=== PATIENT | female | born 1980 | race Two or more races ===

== ENCOUNTER 2017-03-22 23:54 | Emergency (ER) | payer OTHER ==
--- NOTE | 2017-03-23 01:03 | PDOC ---
"History of Present Illness - General Chief Complaint: Pain, Acute Stated Complaint: PAIN Time Seen by Provider: 03/23/17 00:55 History Source: Patient Exam Limitations: No Limitations - History of Present Illness Initial Comments: 03/23/17 00:58 37yo Female patient w/ PmHx: Endometriosis, DVT, Hysterectomy presents to ED c/ o LLE pain and swelling x 2 days. Patient states she is concerned she may have a DVT due to past history of this to her RUE. Patient currently takes no medication. She denies any other complaints at this time. Occurred: reports: last week. denies: just prior to arrival, this morning, this afternoon, this evening, yesterday, other Severity: Yes: moderate. No: mild, severe Lower Extremity Pain Location: left: foot, leg Method of Injury: No: unknown, assault, burn, direct blow, fell, incised, motor vehicle accident, sports injury, twisted, other Modifying Factors: improves with: pain medication. worse with: None, cold therapy, immobilization, rest, other Associated Symptoms: See HPI Lower Ext. Injury Location - Specific Injury Location Legs: left: soft tissue tenderness, pain, swelling Foot: left foot soft tissue tenderness, left foot pain, left foot swelling Extremity Pain Location - Extremity Pain Location Extremity Pain Locations: left: foot, leg Past History - Travel Traveled outside of the country in the last 30 days: No Close contact w/someone who was outside of country & ill: No - Past Medical History Allergies/Adverse Reactions: Allergies Allergy/AdvReac Type Severity Reaction Status Date / Time aspirin Allergy Verified 03/23/17 01:04 Home Medications: Ambulatory Orders NK [No Known Home Medication] 05/11/15 Anemia: No Asthma: No Cancer: No Cardiac Disorders: No CVA: No COPD: No CHF: No Dementia: No Diabetes: No GI Disorders: No Disorders: No HTN: No Hypercholesterolemia: No Liver Disease: No Seizures: No Thyroid Disease: No - Surgical History Abdominal Surgery: No Appendectomy: No Cardiac Surgery: No Cholecystectomy: No Lung Surgery: No Orthopedic Surgery: No - Family Disease History Family Disease History: Diabetes: Mother (htn), Heart Disease: Mother - Immunization History Immunization Up to Date: Yes - Suicide/Smoking/Psychosocial Hx Smoking History: Never smoked Have you smoked in the past 12 months: No Hx Alcohol Use: No Drug/Substance Use Hx: No Substance Use Type: None Hx Substance Use Treatment: No Review of Systems - Review of Systems Able to Perform ROS?: Yes Is the patient limited Uzbek proficient: No Musculoskeletal: Yes: Other (LLE Swelling/Pain) All Other Systems: Reviewed and Negative *Physical Exam - Physical Exam General Appearance: Yes: Nourished, Appropriately Dressed. No: Apparent Distress, Mild Distress, Moderate Distress, Severe Distress Respiratory/Chest: positive: Lungs Clear, Normal Breath Sounds. negative: Chest Tender, Respiratory Distress, Accessory Muscle Use, Labored Respiration, Rapid RR, Decreased Breath Sounds, Paradoxal Breathing, Rhonchi, Stridor, Wheezing Cardiovascular: positive: Regular Rhythm, Regular Rate. negative: Tachycardia Musculoskeletal: positive: Normal Inspection. negative: CVA Tenderness, Decreased Range of Motion, Vertebral Tenderness Extremity: positive: Normal Capillary Refill, Normal Inspection, Normal Range of Motion, Tender, Swelling. 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, Fully Oriented, Alert, Normal Mood/ Affect, Normal Response, Motor Strength 08/04 ED Treatment Course - LABORATORY CBC & Chemistry Diagram: 03/23/17 01:37 03/23/17 01:37 - RADIOLOGY Radiology Studies Ordered: Category Date Time Status FOOT-LEFT [RAD] Stat Radiology 03/23/17 00:55 Ordered DUPLEX VASCUL US-1 LEG [US] Stat Ultrasound 03/23/17 00:55 Ordered Medical Decision Making - Medical Decision Making 03/23/17 02:46 Search Terms: Bhakti Oliveira, 1980 Search Date: 03/23/2017 02:47:38 AM The Drug Utilization Report below displays all of the controlled substance prescriptions, if any, that your patient has filled in the last twelve months. The information displayed on this report is compiled from pharmacy submissions to the Department, and accurately reflects the information as submitted by the pharmacies. This report was requested by: John Morley | Reference #: [id number] Others' Prescriptions Patient Name: Bhakti Oliveira Date: 1980 Address: [address] [place] [address] Sex: Female Rx Written Rx Dispensed Drug Quantity Days Supply Prescriber Name 02/15/2017 02/15/2017 tramadol hcl 50 mg tablet 7 7 Chiquita Venegas ( DO) 07/21/2016 07/21/2016 oxycodone hcl 5 mg tablet 20 7 Chiquita Venegas (DO) 07/10/2016 07/12/2016 tramadol hcl 50 mg tablet 28 7 Ivory Guardado 06/24/2016 06/26/2016 tramadol hcl 50 mg tablet 60 15 AlLoriAbelardoTiffani 06/24/2016 06/26/2016 oxycodone hcl 5 mg tablet 30 5 Tiffani Avila *DC/Admit/Observation/Transfer Diagnosis at time of Disposition: Leg pain, left - Discharge Dispostion Disposition: HOME Condition at time of disposition: Stable Admit: No - Referrals Referrals: Batool Trammell [Primary Care Provider] - Yosvany Riojas MD [Staff Physician] - - Patient Instructions Printed Discharge Instructions: DI for Leg Pain Additional Instructions: Follow up with your primary care provider this week for further evaluation. Watch your salt intake and avoid prolonged standing. Try compression stockings you can purchase from your local pharmacy. Return if symptoms worsen or any concerns for further evaluation. Elevate foot while resting. Follow up with Dr. Riojas (Orthopedic) next week. Print Language: MAURITANIAN - Post Discharge Activity"
[2017-03-23 01:04] VITALS: BP 120/92; PULSE 66; TEMP 98.1; BMI 32.9
--- NOTE | 2017-03-23 01:18 | PDOC ---
*Physical Exam - Vital Signs Last Vital Signs Temp Pulse Resp BP Pulse Ox 98.1 F 66 18 120/92 98 03/23/17 00:59 03/23/17 00:59 03/23/17 00:59 03/23/17 00:59 03/23/17 00:59 ED Treatment Course - LABORATORY CBC & Chemistry Diagram: 03/23/17 01:37 03/23/17 01:37 Medical Decision Making - Medical Decision Making 03/23/17 01:17 agree with care from TOMAS Morley *DC/Admit/Observation/Transfer Diagnosis at time of Disposition: Leg pain, left - Discharge Dispostion Disposition: HOME Condition at time of disposition: Stable - Referrals Referrals: Batool Trammell [Primary Care Provider] - Yosvany Riojas MD [Staff Physician] - - Patient Instructions Printed Discharge Instructions: DI for Leg Pain Additional Instructions: Follow up with your primary care provider this week for further evaluation. Watch your salt intake and avoid prolonged standing. Try compression stockings you can purchase from your local pharmacy. Return if symptoms worsen or any concerns for further evaluation. Elevate foot while resting. Follow up with Dr. Riojas (Orthopedic) next week. Print Language: PANAMANIAN - Post Discharge Activity
[2017-03-23 01:46] LABS: BASO % 0.2 % (0-2.0); EOS # 1.8 # (0-4.5); EOS % 13.9 % (0-4.5); LYMPH # 3.5 (8-40); MCH 28.5 pg (25.7-33.7); MCHC 32.4 g/dl (32.0-36.0); MEAN CELL VOLUME 88.1 fl (80-96); MEAN PLT VOLUME 8.6 fl (7.5-11.1); MONO # 0.7 # (3.8-10.2); NEUT # 6.7 # (42.8-82.8); NEUT % 52.8 % (42.8-82.8); PLATELET COUNT 285 K/MM3 (134-434); RDW 14.9 % (11.6-15.6); WHITE BLOOD COUNT 12.8 K/mm3 (4.0-10.0)
[2017-03-23 01:58] LABS: INR 1.01 (0.82-1.09); PROTHROMBIN TIME (PATIENT) 11.4 SEC (9.98-11.88)
[2017-03-23 02:01] LABS: ACTIVATED PTT 33.4 SECONDS (26.9-34.4)
[2017-03-23 02:08] LABS: ALK PHOS 89 U/L (45-117); ANION GAP 7 (8-16); BILIRUBIN,TOTAL 0.2 mg/dL (0.2-1.0); CALCIUM 9.5 mg/dL (8.5-10.1); CO2 30 mmol/L (21-32); CREATININE 0.7 mg/dL (0.55-1.02); GLUCOSE,RANDOM 89 mg/dL (74-106); SGOT/AST 12 U/L (15-37); SGPT/ALT 20 U/L (12-78); TOT PROT 7.5 g/dl (6.4-8.2)
[2017-03-23 02:51] LABS: URINE APPEARANCE CLEAR; URINE BILIRUBIN NEGATIVE (NEGATIVE); URINE BLOOD NEGATIVE (NEGATIVE); URINE COLOR YELLOW; URINE GLUCOSE (UA) NEGATIVE (NEGATIVE); URINE KETONE NEGATIVE (NEGATIVE); URINE LEUK ESTERASE NEGATIVE (NEGATIVE); URINE NITRITE NEGATIVE (NEGATIVE); URINE PROTEIN NEGATIVE (NEGATIVE); URINE UROBILINOGEN NEGATIVE mg/dL (0.2-1.0)
[2017-03-23 09:10] LABS: URINE LEUK ESTERASE Negative (NEGATIVE)
== END 2017-03-23 03:19 | disposition home or self-care (01) ==
LOC: JER 23:54
DX: M79.662 Pain in left lower leg (principal)
CPT/HCPCS: 36415; 73630-TC-LT; 80053; 81003; 85025; 85610; 85730; 93971-TC; 99283-25

== ENCOUNTER 2017-07-03 19:52 | Emergency (ER) | payer OTHER ==
--- NOTE | 2017-07-03 20:12 | PDOC ---
Rapid Medical Evaluation Time Seen by Provider: 07/03/17 20:10 Medical Evaluation: Allergies Allergy/AdvReac Type Severity Reaction Status Date / Time aspirin Allergy Verified 07/03/17 20:09 07/03/17 20:10 I have performed a brief in-person evaluation of this patient. The patient presents with a chief complaint of sorethroat x 3 days with headache and chills. Denies coughing Pertinent physical exam finding are NAD +enlarged tonsils r>l, no exudated lungs clear bilaterally I have ordered the following: urine , rapid strep The patient will proceed to the ED for further evaluation. Discharge Disposition - Referrals Referrals: Batool Trammell [Primary Care Provider] - - Patient Instructions - Post Discharge Activity
[2017-07-03 20:13] VITALS: BP 121/82; PULSE 82; TEMP 98.5; BMI 36.6
[2017-07-03] MEDS ORDERED: DEXAMETHASONE LIQUID 0.5 MG/5 ML 240 ML BULK BOTTLE PO ONE (20:47)
--- NOTE | 2017-07-03 20:52 | PDOC ---
History of Present Illness - General Chief Complaint: Sore Throat Stated Complaint: Sore Throat Time Seen by Provider: 07/03/17 20:10 History Source: Patient Exam Limitations: No Limitations - History of Present Illness Initial Comments: 07/03/17 20:50 This is a 37-year-old woman with past medical history of endometriosis status post BINDU 04/19 who presents to emergency department with 2 days of sore throat, frontal headaches, nasal congestion and subjective fevers. Patient states over the past 2 days the pain in the throat is gotten significantly worse and now she is having hoarseness when she speaks. She denies any dizziness, blurry vision, chest pain, shortness of breath, drainage from her ears, nasal congestion or rhinorrhea. Past History - Past Medical History Allergies/Adverse Reactions: Allergies Allergy/AdvReac Type Severity Reaction Status Date / Time aspirin Allergy Verified 07/03/17 20:09 Home Medications: Ambulatory Orders Amoxicillin - [Amoxicillin 500mg Capsule -] 500 mg PO BID #20 capsule 07/03/17 Anemia: No Asthma: No Cancer: No Cardiac Disorders: No CVA: No COPD: No CHF: No DVT: Yes (2016) Dementia: No Diabetes: No Dialysis: No GI Disorders: No Disorders: No HTN: No Hypercholesterolemia: No Kidney Stones: No Liver Disease: No Psychiatric Problems: No Seizures: No Thyroid Disease: No Lung CA: No - Surgical History Abdominal Surgery: No Appendectomy: No Cardiac Surgery: No Cholecystectomy: No Gastric Stapling: No GI Surgery: No Lung Surgery: No Neurologic Surgery: No Orthopedic Surgery: No - Family Disease History Family Disease History: Diabetes: Mother (htn), Heart Disease: Mother - Immunization History Immunization Up to Date: Yes - Suicide/Smoking/Psychosocial Hx Smoking History: Never smoked Have you smoked in the past 12 months: No Hx Alcohol Use: No Drug/Substance Use Hx: No Substance Use Type: None Hx Substance Use Treatment: No Review of Systems - Review of Systems Able to Perform ROS?: Yes Is the patient limited Hebrew proficient: No Constitutional: Yes: See HPI HEENTM: Yes: See HPI Respiratory: No: Symptoms reported Cardiac (ROS): No: Symptoms Reported ABD/GI: No: Symptoms Reported : No: Symptoms Reported Musculoskeletal: No: Symptoms Reported Integumentary: No: Symptoms Reported Neurological: No: Symptoms reported Endocrine: No: Symptoms Reported Hematologic/Lymphatic: No: Symptoms Reported *Physical Exam - Vital Signs Last Vital Signs Temp Pulse Resp BP Pulse Ox 98.5 F 82 18 121/82 98 07/03/17 20:12 07/03/17 20:12 07/03/17 20:12 07/03/17 20:12 07/03/17 20:12 - Physical Exam General Appearance: Yes: Appropriately Dressed. No: Apparent Distress HEENT: positive: Pharyngeal Erythema, Tonsillar Erythema, Hearing Grossly Normal , Other (bilateral TM retractions). negative: Tonsillar Exudate, Nasal Congestion, Rhinorrhea, Sinus Tenderness Neck: positive: Tender (Submandibular lymphadenopathy), Trachea midline, Supple , Lymphadenopathy (R), Lymphadenopathy (L). negative: Stridor Respiratory/Chest: positive: Lungs Clear, Normal Breath Sounds. negative: Respiratory Distress, Accessory Muscle Use Cardiovascular: positive: Regular Rhythm, Regular Rate. negative: Murmur Gastrointestinal/Abdominal: positive: Normal Bowel Sounds, Soft. negative: Tender Musculoskeletal: positive: Normal Inspection. 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 Tonsillar erythema present no exudates are present. Bilateral TM retractions present. Tender anterior cervical lymphadenopathy. Lungs clear to auscultation bilaterally Symptoms consistent with streptococcal infection. Rapid strep testing Decadron 10 mg by mouth now 07/03/17 22:06 Rapid strep is positive. I will treat with amox as outpatient. *DC/Admit/Observation/Transfer Diagnosis at time of Disposition: Strep pharyngitis - Discharge Dispostion Disposition: HOME Condition at time of disposition: Stable Admit: No - Prescriptions Prescriptions: Amoxicillin - [Amoxicillin 500mg Capsule -] 500 mg PO BID #20 capsule - Referrals Referrals: Batool Trammell [Primary Care Provider] - - Patient Instructions Additional Instructions: Take amoxicillin as prescribed. Salt water garggles. Throw away your toothbrush in 1 week and start using a new toothbrush. No sharing of drinks, utensils or toothbrushes. Take Motrin as directed by chief of safety and protection's instructions. Return to ED for worsening fevers, worsening sore throat, chest pain, shortness of breath or any other concerns. - Post Discharge Activity
[2017-07-03] MEDS ORDERED: DEXAMETHASONE SOD PHOSPHATE 10 MG/1 ML VIAL ONE (21:04)
[2017-07-03] MEDS ORDERED: IBUPROFEN 600 MG TABLET (FP) PO ONE ×2 (21:59→22:01)
== END 2017-07-03 22:13 | disposition home or self-care (01) ==
LOC: JERFT 19:52
DX: J02.0 Streptococcal pharyngitis (principal); B95.0 Streptococcus, group A, as the cause of diseases classified elsewhere; Z86.718 Personal history of other venous thrombosis and embolism
CPT/HCPCS: 84703; 87070; 87077; 87430; 99281-25

== ENCOUNTER 2018-04-21 22:20 | Emergency (ER) | payer OTHER ==
[2018-04-21 22:30] VITALS: BP 134/95; PULSE 71; TEMP 98.3; BMI 36.6
--- NOTE | 2018-04-22 00:21 | PDOC ---
History of Present Illness - General History Source: Patient Exam Limitations: No Limitations - History of Present Illness Initial Comments: 04/22/18 01:06 The patient is a 38 year old female with a significant past medical history of endometriosis s/p BINDU (04/19) and recurrent ovarian cysts who presents to the ED with complaints of superpubic pain. Patient reports a history of (3 years ago), tubal ligation and endometriosis ablation. She comes into the ED complaining of superpubic pain that is worsened when walking and coughing. She also reports slight irritation at the site of her incision. Patient was recently treated for bacterial vaginosis with a 15 day course of flagyl. Denies fever or chills. Denies nausea or vomiting. Denies any other symptoms. <Nathan Smiley - Last Filed: 04/22/18 01:14> <Maggy Louis - Last Filed: 04/22/18 02:37> - General Chief Complaint: Pain Stated Complaint: ABDOMINAL PAIN Time Seen by Provider: 04/22/18 00:21 Past History <Nathan Smiley - Last Filed: 04/22/18 01:14> - Past Medical History Anemia: No Asthma: No Cancer: No Cardiac Disorders: No CVA: No COPD: No CHF: No DVT: Yes (2016) Dementia: No Diabetes: No Dialysis: No GI Disorders: No Disorders: No HTN: No Hypercholesterolemia: No Kidney Stones: No Liver Disease: No Psychiatric Problems: No Seizures: No Thyroid Disease: No Lung CA: No - Surgical History Abdominal Surgery: No Appendectomy: No Cardiac Surgery: No Cholecystectomy: No Gastric Stapling: No GI Surgery: No Lung Surgery: No Neurologic Surgery: No Orthopedic Surgery: No - Family Disease History Family Disease History: Diabetes: Mother (htn), Heart Disease: Mother - Immunization History Immunization Up to Date: Yes - Suicide/Smoking/Psychosocial Hx Smoking History: Never smoked Have you smoked in the past 12 months: No Hx Alcohol Use: No Drug/Substance Use Hx: No Substance Use Type: None Hx Substance Use Treatment: No <Maggy Louis - Last Filed: 04/22/18 02:37> - Past Medical History Allergies/Adverse Reactions: Allergies Allergy/AdvReac Type Severity Reaction Status Date / Time aspirin Allergy Verified 04/21/18 22:27 Home Medications: Ambulatory Orders Amoxicillin - [Amoxicillin 500mg Capsule -] 500 mg PO BID #20 capsule 07/03/17 Review of Systems - Review of Systems Able to Perform ROS?: Yes Comments:: 04/22/18 01:07 CONSTITUTIONAL: Absent: fever, chills, diaphoresis, generalized weakness, malaise, loss of appetite HEENT: Absent: rhinorrhea, nasal congestion, throat pain, throat swelling, difficulty swallowing, mouth swelling, ear pain, eye pain, visual Changes CARDIOVASCULAR: Absent: chest pain, syncope, palpitations, irregular heart rate, lightheadedness , peripheral edema RESPIRATORY: Absent: cough, shortness of breath, dyspnea with exertion, orthopnea, wheezing, stridor, hemoptysis GASTROINTESTINAL: + superpubic tenderness. Absent:, abdominal distension, nausea, vomiting, diarrhea, constipation, melena , hematochezia GENITOURINARY: Absent: dysuria, frequency, urgency, hesitancy, hematuria, flank pain, genital pain MUSCULOSKELETAL: Absent: myalgia, arthralgia, joint swelling SKIN: + scar irritation. Absent: rash, itching, pallor HEMATOLOGIC/IMMUNOLOGIC: Absent: easy bleeding, easy bruising, lymphadenopathy, frequent infections ENDOCRINE: Absent: unexplained weight gain, unexplained weight loss, heat intolerance, cold intolerance NEUROLOGIC: Absent: headache, focal weakness or paresthesias, dizziness, unsteady gait, seizure, mental status changes, bladder or bowel incontinence PSYCHIATRIC: Absent: anxiety, depression, suicidal or homicidal ideation, hallucinations. All Other Systems: Reviewed and Negative <Nathan Smiley - Last Filed: 04/22/18 01:14> *Physical Exam - Vital Signs Last Vital Signs Temp Pulse Resp BP Pulse Ox 98.3 F 71 18 134/95 98 04/21/18 22:27 04/21/18 22:27 04/21/18 22:27 04/21/18 22:27 04/21/18 22:27 - Physical Exam Comments: 04/22/18 01:07 GENERAL: Afebrile .Well developed, well nourished. Awake and alert. No acute distress. HEENT: Normocephalic, atraumatic. PERRLA, EOMI. No conjunctival pallor. Sclera are non- icteric. Moist mucous membranes. Oropharynx is clear. NECK: Supple. Full ROM. No JVD. Carotid pulses 2+ and symmetric, without bruits. No thyromegaly. No lymphadenopathy. CARDIOVASCULAR: Regular rate and rhythm. No murmurs, rubs, or gallops. Distal pulses are 2+ and symmetric. PULMONARY: No evidence of respiratory distress. Lungs clear to auscultation bilaterally. No wheezing, rales or rhonchi. ABDOMINAL: + Minimal tenderness with palpation at the superior aspect of her midline vertical scar. Early hernia defect, 1cm in diameter. Horizontal superpubic C section scar that is well healhed, slight irritation secondary to pannus. Soft. Non-distended. No rebound or guarding. No organomegaly. Normoactive bowel sounds. MUSCULOSKELETAL Normal range of motion at all joints. No bony deformities or tenderness. No CVA tenderness. EXTREMITIES: No cyanosis. No clubbing. No edema. No calf tenderness. SKIN: Warm and dry. Normal capillary refill. No rashes. No jaundice. NEUROLOGICAL: Alert, awake, appropriate. Cranial nerves 2-12 intact. No deficits to light touch and temperature in face, upper extremities and lower extremities. No motor deficits in the in face, upper extremities and lower extremities. Normoreflexic in the upper and lower extremities. Normal speech. Toes are down- going bilaterally. Gait is normal without ataxia. PSYCHIATRIC: Cooperative. Good eye contact. Appropriate mood and affect. <Nathan Smiley - Last Filed: 04/22/18 01:14> - Vital Signs Last Vital Signs Temp Pulse Resp BP Pulse Ox 98.3 F 71 18 134/95 98 04/21/18 22:27 04/21/18 22:27 04/21/18 22:27 04/21/18 22:27 04/21/18 22:27 <Maggy Louis - Last Filed: 04/22/18 02:37> Moderate Sedation - Procedure Monitoring Vital Signs: Procedure Monitoring Vital Signs Temperature 98.3 F 04/21/18 22:27 Pulse Rate 71 04/21/18 22:27 Respiratory Rate 18 04/21/18 22:27 Blood Pressure 134/95 04/21/18 22:27 O2 Sat by Pulse Oximetry (%) 98 04/21/18 22:27 <Nathan Smiley - Last Filed: 04/22/18 01:14> - Procedure Monitoring Vital Signs: Procedure Monitoring Vital Signs Temperature 98.3 F 04/21/18 22:27 Pulse Rate 71 04/21/18 22:27 Respiratory Rate 18 04/21/18 22:27 Blood Pressure 134/95 04/21/18 22:27 O2 Sat by Pulse Oximetry (%) 98 04/21/18 22:27 <Maggy Louis - Last Filed: 04/22/18 02:37> Medical Decision Making - Medical Decision Making 04/22/18 02:35 UA is normal. Pt has a small early surgical site hernia; pt will follow with Dr. Norwood of surg as an outpatient. Pt has complaint of pain at her old surgical site. Pt has a pannus which is irritating the area. Pt likely had a fungal infection. She has no rash and no irritation at this time. She understands that she should try and lose some weight. <Maggy Louis - Last Filed: 04/22/18 02:37> *DC/Admit/Observation/Transfer - Attestations Scribe Attestion: 04/22/18 01:07 Documentation prepared by Nathan Smiley, acting as medical manager for Maggy Louis MD <Nathan Smiley - Last Filed: 04/22/18 01:14> - Discharge Dispostion Decision to Admit order: No <Maggy Louis - Last Filed: 04/22/18 02:37> Diagnosis at time of Disposition: Adhesions due to endometriosis, Herniation through surgical site - Discharge Dispostion Disposition: HOME Condition at time of disposition: Stable - Referrals Referrals: Nadir Norwood MD [Staff Physician] - - Patient Instructions Printed Discharge Instructions: Hernias: Causes and Treatment Options
[2018-04-22 02:03] LABS: URINE APPEARANCE CLEAR; URINE BILIRUBIN NEGATIVE (<2.0 mg/dL); URINE COLOR LTYELLOW; URINE GLUCOSE (UA) NEGATIVE (NEGATIVE); URINE KETONE NEGATIVE (NEGATIVE); URINE LEUK ESTERASE NEGATIVE (NEGATIVE); URINE NITRITE NEGATIVE (NEGATIVE); URINE PROTEIN NEGATIVE (NEGATIVE); URINE UROBILINOGEN NEGATIVE mg/dL (0.2-1.0)
== END 2018-04-22 04:43 | disposition home or self-care (01) ==
LOC: JER 22:20
DX: N99.4 Postprocedural pelvic peritoneal adhesions (principal); Z87.42 Personal history of other diseases of the female genital tract; Z90.710 Acquired absence of both cervix and uterus
CPT/HCPCS: 74176-TC; 81003; 99282-25

== ENCOUNTER 2018-07-01 14:07 | Emergency (ER) | payer OTHER ==
[2018-07-01 14:30] VITALS: BP 126/75; PULSE 93; TEMP 98.8; BMI 39.1
[2018-07-01] MEDS ORDERED: ACETAMINOPHEN 325 MG TABLET (FP) PO ONE (14:50)
[2018-07-01] MEDS ORDERED: ACETAMINOPHEN 325 MG TABLET (FP) ONE (14:52)
--- NOTE | 2018-07-01 14:59 | PDOC ---
History of Present Illness - General Chief Complaint: Cold Symptoms Stated Complaint: COLD SYMPTOMS Time Seen by Provider: 07/01/18 14:40 History Source: Patient Exam Limitations: Clinical Condition - History of Present Illness Initial Comments: 07/01/18 14:53 Patient with no significant past medical history present with complaint of three -day history of nasal congestion, runny nose, body aches, fever, chills and dry cough. Patient report last fever was yesterday of 10 1F. Patient also reported headache for the same period. Denies nausea, vomiting, sore throat, dizziness or abdominal pains. Denies any other symptoms Timing/Duration: other (3 days) Past History - Past Medical History Allergies/Adverse Reactions: Allergies Allergy/AdvReac Type Severity Reaction Status Date / Time aspirin Allergy Verified 07/01/18 14:30 Home Medications: Ambulatory Orders Amoxicillin - [Amoxicillin 500mg Capsule -] 500 mg PO BID #20 capsule 07/03/17 Ipratropium [place] 2 spray NS BID PRN #1 spray 07/01/18 Loratadine 10 mg PO DAILY #10 capsule 07/01/18 Methylprednisolone [Medrol Dose Joseph] 4 mg PO ASDIR #21 tablet 07/01/18 Anemia: No Asthma: No Cancer: No Cardiac Disorders: No CVA: No COPD: No CHF: No DVT: Yes (2016) Dementia: No Diabetes: No Dialysis: No GI Disorders: No Disorders: No HTN: No Hypercholesterolemia: No Kidney Stones: No Liver Disease: No Psychiatric Problems: No Seizures: No Thyroid Disease: No Lung CA: No - Surgical History Abdominal Surgery: No Appendectomy: No Cardiac Surgery: No Cholecystectomy: No Gastric Stapling: No GI Surgery: No Lung Surgery: No Neurologic Surgery: No Orthopedic Surgery: No - Family Disease History Family Disease History: Diabetes: Mother (htn), Heart Disease: Mother - Immunization History Immunization Up to Date: Yes - Suicide/Smoking/Psychosocial Hx Smoking History: Never smoked Have you smoked in the past 12 months: No Information on smoking cessation initiated: No Hx Alcohol Use: No Drug/Substance Use Hx: No Substance Use Type: None Hx Substance Use Treatment: No Review of Systems - Review of Systems Able to Perform ROS?: Yes Is the patient limited Italian proficient: No Constitutional: Yes: Chills, Fever, Malaise HEENTM: Yes: Symptoms Reported, See HPI. No: Eye Pain, Blurred Vision, Tearing , Recent change in vision, Double Vision, Cataracts, Ear Pain, Ocular Prothesis , Ear Discharge, Nose Pain, Nose Congestion, Tinnitus, Nose Bleeding, Hearing Loss, Throat Pain, Throat Swelling, Mouth Pain, Dental Problems, Difficulty Swallowing, Mouth Swelling, Other Respiratory: Yes: Symptoms reported, See HPI, Cough. No: Orthopnea, Shortness of Breath, SOB with Exertion, SOB at Rest, Stridor, Wheezing, Productive cough, Hemoptysis, Other Cardiac (ROS): No: Symptoms Reported, See HPI, Chest Pain, Edema, Irregular Heart Rate, Lightheadedness, Palpitations, Syncope, Chest Tightness, Other ABD/GI: No: Nausea, Vomiting All Other Systems: Reviewed and Negative *Physical Exam - Vital Signs Last Vital Signs Temp Pulse Resp BP Pulse Ox 98.8 F 93 H 18 126/75 97 07/01/18 14:28 07/01/18 14:28 07/01/18 14:28 07/01/18 14:28 07/01/18 14:28 - Physical Exam Comments: 07/01/18 14:55 GENERAL: Well developed, well nourished. Awake and alert. No acute distress. HEENT: Normocephalic, atraumatic. PERRLA, EOMI. No conjunctival pallor. Sclera are non-icteric. Moist mucous membranes. Oropharynx is clear. NECK: Supple. Full ROM. CARDIOVASCULAR: Regular rate and rhythm. No murmurs, rubs, or gallops. Distal pulses are 2+ and symmetric. PULMONARY: No evidence of respiratory distress. Lungs clear to auscultation bilaterally. No wheezing, rales or rhonchi. ABDOMINAL: Soft. Non-tender. Non-distended. No rebound or guarding. No organomegaly. Normoactive bowel sounds. MUSCULOSKELETAL Normal range of motion at all joints. SKIN: Warm and dry. Normal capillary refill. No rashes. No jaundice. NEUROLOGICAL: Alert, awake, appropriate. Gait is normal without ataxia. PSYCHIATRIC: Cooperative. Good eye contact. Appropriate mood General Appearance: Yes: Nourished, Appropriately Dressed. No: Apparent Distress ED Treatment Course - Medications Given in the ED: ED Medications Discontinued Medications Generic Name Dose Route Start Last Admin Trade Name Freq PRN Reason Stop Dose Admin Acetaminophen 650 mg 07/01/18 14:50 07/01/18 14:53 Tylenol - PO 07/01/18 14:51 650 mg ONCE ONE Administration Medical Decision Making - Medical Decision Making 07/01/18 14:56 Patient with no significant past medical history present with complaint of three -day history of URI symptoms with body aches and fevers was last fever yesterday. Clinical exam unremarkable lungs clear to auscultation bilateral and patient with no fever on presentation. Symptoms likely viral syndrome versus influenza. Rapid flu ordered to rule out influenza. Tylenol 650 mg by mouth ordered for headache 07/01/18 15:32 Rapid flu negative. Patient is stable for outpatient management of viral URI with PCP follow-up *DC/Admit/Observation/Transfer Diagnosis at time of Disposition: Viral syndrome, Malaise URI (upper respiratory infection) Qualifiers: URI type: unspecified viral URI Qualified Code(s): J06.9 - Acute upper respiratory infection, unspecified - Discharge Dispostion Disposition: HOME Condition at time of disposition: Stable Decision to Admit order: No - Prescriptions Prescriptions: Ipratropium [place] 2 spray NS BID PRN #1 spray PRN Reason: nasal congestion Loratadine 10 mg PO DAILY #10 capsule Methylprednisolone [Medrol Dose Joseph] 4 mg PO ASDIR #21 tablet - Referrals - Patient Instructions Printed Discharge Instructions: DI for Viral Upper Respiratory Infection -- Adult Additional Instructions: Your rapid flu was negative. The symptoms is likely from viral infection. Take medication as prescribed. Increase fluid intake. Follow-up with primary care as needed - Post Discharge Activity Forms/Work/School Notes: Back to Work
== END 2018-07-01 15:41 | disposition home or self-care (01) ==
LOC: JERFT 14:07
DX: J06.9 Acute upper respiratory infection, unspecified (principal); B34.9 Viral infection, unspecified
CPT/HCPCS: 87804; 99281-25

== ENCOUNTER 2019-01-07 20:47 | Emergency (ER) | payer OTHER ==
[2019-01-07 21:05] VITALS: TEMP 98; BMI 40.6
--- NOTE | 2019-01-07 22:42 | PDOC ---
History of Present Illness - General Chief Complaint: Pain Stated Complaint: LT HAND PAIN Time Seen by Provider: 01/07/19 22:15 History Source: Patient - History of Present Illness Initial Comments: 01/07/19 22:41 38 year old female c/o left arm pain persistent x 2 weeks. patient here to r/o clot since she is scheduled for weight loss surgery in the coming week. patient reports heaviness to arms. 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 PMHX: endometriosis, prediabetes PSHX: , hysterectomy, patient has a history of blood clot right arm Past History - Past Medical History Allergies/Adverse Reactions: Allergies Allergy/AdvReac Type Severity Reaction Status Date / Time aspirin Allergy Intermediate Rash Verified 01/07/19 21:04 Home Medications: Ambulatory Orders NK [No Known Home Medication] 01/07/19 Anemia: No Asthma: No Cancer: No Cardiac Disorders: No CVA: No COPD: No CHF: No DVT: Yes (2015) Dementia: No Diabetes: No Dialysis: No GI Disorders: No Disorders: No HTN: No Hypercholesterolemia: No Kidney Stones: No Liver Disease: No Psychiatric Problems: No Seizures: No Thyroid Disease: No Lung CA: No Other medical history: DVT LT ARM - Surgical History Abdominal Surgery: No Appendectomy: No Cardiac Surgery: No Cholecystectomy: No Gastric Stapling: No GI Surgery: No Lung Surgery: No Neurologic Surgery: No Orthopedic Surgery: No - Immunization History Immunization Up to Date: Yes - Psycho Social/Smoking Cessation Hx Smoking History: Never smoked Have you smoked in the past 12 months: No Information on smoking cessation initiated: No Hx Alcohol Use: No Drug/Substance Use Hx: No Substance Use Type: None Hx Substance Use Treatment: No Review of Systems - Review of Systems Able to Perform ROS?: Yes Is the patient limited Maltese proficient: No Constitutional: No: Symptoms Reported, See HPI, Chills, Diaphoresis, Fever, Loss of Appetite, Malaise, Night Sweats, Weakness, Weight Stable, Unintentional Wgt. Loss, Unexplained wgt Loss, Other *Physical Exam - Vital Signs Last Vital Signs Temp Pulse Resp BP Pulse Ox 98 F 79 17 120/76 100 01/07/19 21:01 01/07/19 21:01 01/07/19 21:01 01/07/19 21:01 01/07/19 21:01 - Physical Exam General Appearance: Yes: Appropriately Dressed Respiratory/Chest: positive: Lungs Clear, Normal Breath Sounds Extremity: positive: Normal Capillary Refill, Normal Inspection, Normal Range of Motion, Other (+ distal pulse) Integumentary: positive: Normal Color, Dry, Warm Neurologic: positive: Fully Oriented, Normal Mood/Affect ED Progress Note - Progress Note Progress Note: 01/07/19 23:53 A: left arm pain P: r/o DVT 01/07/19 23:56 Discharge - Discharge Information Problems reviewed: Yes Clinical Impression/Diagnosis: Left arm pain Disposition: HOME - Follow up/Referral - Patient Discharge Instructions Patient Printed Discharge Instructions: DI for Arm Pain Additional Instructions: wear a wrist splint take ibuprofen every 6 hours as needed for pain follow up with your doctor as soon as possible. - Post Discharge Activity Work/Back to School Note: Back to Work
[2019-01-08 02:02] VITALS: BP 118/78; PULSE 80
== END 2019-01-08 02:02 | disposition home or self-care (01) ==
LOC: JER 20:47
DX: M79.602 Pain in left arm (principal); Z86.718 Personal history of other venous thrombosis and embolism; Z87.42 Personal history of other diseases of the female genital tract; R73.03 Prediabetes; E66.01 Morbid (severe) obesity due to excess calories; Z68.41 Body mass index [BMI] 40.0-44.9, adult; Z88.6 Allergy status to analgesic agent; Z90.79 Acquired absence of other genital organ(s)
CPT/HCPCS: 93971; 99282-25

== ENCOUNTER 2019-01-13 05:58 | Inpatient (IN) | payer OTHER ==
[2019-01-07 11:24] VITALS: BMI 40.4
[~2019-01-13 05:58] MED LIST: BUPIVACAINE HCL/PF 0.25% (2.5MG/ML) 10 ML VIAL IJ ONE
[2019-01-13] MEDS ORDERED: MIDAZOLAM HCL 2 MG/2 ML SINGLE DOSE VIAL ONE ×2 (07:22→08:07)
[2019-01-13] MEDS ORDERED: BUPIVACAINE HCL/PF 0.5% (5 MG/ML) 30 ML VIAL IJ ONE (07:22)
--- NOTE | 2019-01-13 07:34 | HP ---
Admitting History and Physical - Admission Chief Complaint: Morbid obesity History Source: Patient Limitations to Obtaining History: No Limitations - Past Medical History ...LMP: 11/10/15 ...LMP Comment: BINDU ESPINOZA - 2016 ...: No - Past Surgical History Past Surgical History: Yes: , Hysterectomy, Oopherectomy - Smoking History Smoking history: Never smoked Have you smoked in the past 12 months: No If you are a former smoker, when did you quit?: 2008 - Alcohol/Substance Use Hx Alcohol Use: No - Social History ADL: Independent History of Recent Travel: Yes ([facility], [place]) Home Medications - Allergies Allergies/Adverse Reactions: Allergies Allergy/AdvReac Type Severity Reaction Status Date / Time aspirin Allergy Intermediate Rash Verified 01/13/19 07:15 - Home Medications Home Medications: Ambulatory Orders Docusate Sodium [Colace -] 100 mg PO TID #90 capsule 01/13/19 Famotidine [Pepcid] 20 mg PO BID #60 tablet 01/13/19 Ondansetron [Zofran -] 8 mg PO TID #30 tablet 01/13/19 Oxycodone HCl/Acetaminophen [Percocet 5-325 mg Tablet] 1 - 2 tab PO Q6H #28 tab MDD 4 01/13/19 Family Medical History Family History: Unremarkable Review of Systems - Review of Systems Constitutional: denies: Chills, Fever Neck: reports: No Symptoms Cardiovascular: reports: No Symptoms Respiratory: reports: No Symptoms Gastrointestinal: reports: No Symptoms Neurological: reports: No Symptoms Pain Intensity: 0 Physical Examination Vital Signs: Vital Signs Temperature 98.2 F 01/13/19 07:18 Pulse Rate 58 L 01/13/19 07:18 Respiratory Rate 16 01/13/19 07:18 Blood Pressure 122/84 01/13/19 07:18 O2 Sat by Pulse Oximetry (%) 96 01/13/19 07:25 Constitutional: Yes: Calm Cardiovascular: Yes: WNL Respiratory: Yes: Regular Gastrointestinal: Yes: Soft, Abdomen, Obese Neurological: Yes: Alert, Oriented Problem List - Problems (1) Morbid obesity due to excess calories Code(s): E66.01 - MORBID (SEVERE) OBESITY DUE TO EXCESS CALORIES (2) BMI 40.0-44.9, adult Code(s): Z68.41 - BODY MASS INDEX (BMI) 40.0-44.9, ADULT Assessment/Plan Laparoscopic possible open vertical sleeve gastrectomy possible liver biopsy, upper endoscopy
[2019-01-13] MEDS ORDERED: BUPIVACAINE HCL 0.25% 125 MG/50 ML VIAL ONE (07:41)
[2019-01-13] MEDS ORDERED: PROPOFOL 20 ML ONE ×2 (08:06→08:18)
[2019-01-13] MEDS ORDERED: SUCCINYLCHOLINE CHLORIDE 200 MG/10 ML SYRINGE ONE (08:06)
[2019-01-13] MEDS ORDERED: ROCURONIUM BROMIDE 50 MG/5 ML SYRINGE ONE (08:07)
[2019-01-13] MEDS ORDERED: EPHEDRINE SULFATE/0.9% NACL/PF 50 MG/10 ML SYRINGE NR ONE (08:07)
[2019-01-13] MEDS ORDERED: SODIUM CHLORIDE 0.9% P/F 10 ML VIAL IJ ONE (08:08)
[2019-01-13] MEDS ORDERED: ceFAZolin SODIUM 1 GM VIAL ONE ×2 (08:08→08:50)
[2019-01-13] MEDS ORDERED: NEOSTIGMINE METHYLSULFATE 0.5 MG/ML - 10 ML MDV ONE (08:49)
[2019-01-13] MEDS ORDERED: DEXAMETHASONE SOD PHOSPHATE 4 MG/1 ML VIAL ONE (08:50)
[2019-01-13] MEDS ORDERED: KETOROLAC TROMETHAMINE 30 MG/1 ML VIAL ONE (08:50)
[2019-01-13] MEDS ORDERED: ONDANSETRON 4 MG/2 ML VIAL ONE (08:50)
[2019-01-13] MEDS ORDERED: oxyCODONE HCL 5 MG TABLET PO PRN ×2 (09:03)
[2019-01-13] MEDS ORDERED: ONDANSETRON 4 MG/2 ML VIAL IVPUSH PRN (09:03)
[2019-01-13] MEDS ORDERED: ACETAMINOPHEN 1000 MG/100 ML VIAL (NON FORMULARY) IVPB ONE (09:06)
[2019-01-13] MEDS ORDERED: LACTATED RINGERS SOLUTION 1,000 ML IV SCH (09:15)
[2019-01-13] MEDS ORDERED: BUPIVACAINE HCL/PF 0.25% (2.5MG/ML) 10 ML VIAL IJ ONE (09:20)
[2019-01-13] MEDS ORDERED: GLYCOPYRROLATE 0.2 MG/1 ML VIAL ONE (09:28)
[2019-01-13] MEDS: ACETAMINOPHEN 1000 MG/100 ML VIAL (NON FORMULARY) IVPB SCH ×2 (09:50→17:17)
[2019-01-13] MEDS ORDERED: HYDROmorphone HCL CARPU-JECT 1 MG/1 ML DISP.SYRIN IVPB PRN (09:53)
--- NOTE | 2019-01-13 09:53 | OP ---
Operative Note - Note: Operative Date: 01/13/19 Pre-Operative Diagnosis: Morbid obesity. BMi 40 Operation: Diagnostic laparoscopy. Laparoscopic vertical sleeve gastrectomy. Laparoscopic wedge liver biopsy Post-Operative Diagnosis: Same as Pre-op (as well as hepatomegaly) Surgeon: Abiodun Peguero Special Projects Manager: Antonio Fan Anesthesia: General Specimens Removed: Greater curvature of stomach. Liver biopsy Estimated Blood Loss (mls): 30 Drains & Tubes with Location: 36 fr Bougie Operative Report Dictated: Yes
[2019-01-13] MEDS ORDERED: SODIUM CHLORIDE 1,000 ML IV SCH (10:00)
[2019-01-13] MEDS ORDERED: FAMOTIDINE 20 MG PREMIXED IVPB IVPB ONE (10:00)
[2019-01-13] MEDS: METOCLOPRAMIDE HCL INJECTION 10 MG/2 ML VIAL IVPUSH SCH ×3 (10:00→22:02)
[2019-01-13 10:02] LABS: HEMATOCRIT 37.3 % (32.4-45.2); HEMOGLOBIN 12.3 GM/dl (10.7-15.3); MCH 29.7 pg (25.7-33.7); MCHC 32.9 g/dl (32.0-36.0); MEAN CELL VOLUME 90.4 fl (80-96); MEAN PLT VOLUME 8.8 fl (7.5-11.1); PLATELET COUNT 298 K/MM3 (134-434); RBC 4.12 M/mm3 (3.60-5.2); RDW 13.4 % (11.6-15.6)
--- NOTE | 2019-01-13 10:17 | SPEC ---
DATE OF OPERATION: 01/13/2019 SURGEON: Abiodun Peguero MD TUBE FORMER OPERATOR: Antonio Fan MD PLACE OF SERVICE: [facility], [address] [place] [address] PREOPERATIVE DIAGNOSES: 1. Morbid obesity. 2. Body mass index 40.4. POSTOPERATIVE DIAGNOSES: 1. Morbid obesity. 2. Body mass index 40.4. 3. Hepatomegaly. PROCEDURES: 1. Diagnostic laparoscopy. 2. Laparoscopic vertical sleeve gastrectomy. 3. Laparoscopic wedge liver biopsy. SPECIMENS: 1. Greater curvature of the stomach. 2. Liver biopsy. ESTIMATED BLOOD LOSS: 30 mL. DRAIN: None. ANESTHESIA: GET. BOUGIE SIZE: 36-[place]bian. REASON FOR PROCEDURE: This is a 38-year-old female who presents to the office for weight loss options. After describing different options, she decided to proceed with a laparoscopic, possible open, vertical sleeve gastrectomy, possible liver biopsy, upper endoscopy. The patient was seen by the respective subspecialties and cleared for surgery. The risks and benefits of the procedure were explained. These included bleeding, infection, hernia, AK, DVT, PE, injury to surrounding structures including the liver, colon, bowel, spleen, esophagus, vessel injury, nerve injury, weight regain, gastric leak, staple line leak, sleeve leak, obstruction, vitamin deficiency, hair loss and as some of the possible complications. The patient understood and signed informed consent. DESCRIPTION OF PROCEDURE: The patient was placed supine on the operating room table. The patient underwent general endotracheal intubation. The arms were brought out at 90 degrees and secured. A footboard was placed and the legs were secured laterally with padding. The abdomen was prepped and draped in the usual sterile fashion. A timeout was performed. An incision was made in the left upper quadrant and a Veress needle inserted. Pneumoperitoneum was established. Subsequently, the Veress needle was removed and a 5-mm trocar was placed under direct visualization with the laparoscope. The laparoscopic camera was then inserted and inspection of the abdominal cavity was performed. An incision was then made in the supraumbilical area and a 15-mm trocar was placed under direct visualization. A 5-mm trocar was then placed in the right upper quadrant and a 5-mm trocar was placed below the left subcostal margin. A stab wound was made in the subxiphoid area and a Joana clamp inserted and removed to dilate the tract. A Rob liver retractor was inserted. The post was secured at the bedside by the nursing staff. The patient was placed in steep reverse Trendelenburg position and the Rob liver retractor was used to secure the liver towards the anterior abdominal wall. The pylorus was identified and 6 cm proximal to it, the lesser sac was entered using the LigaSure device. All lateral attachments to the greater curvature of the stomach, including the short gastric vessels, were ligated using the LigaSure device toward the gastrosplenic and gastrophrenic ligaments. Once this was done in its entirety, it was confirmed that all tubes within the nasal or oropharyngeal cavity, including a temperature probe were removed by Anesthesia. The bougie was then inserted by Anesthesia. Transection of the stomach was then begun staying adjacent to the bougie but away from the angularis. Transection of the stomach was performed near the portion of the stomach where the lesser sac was entered. Two laparoscopic Endo-OSCAR black grace were used at this location. Laparoscopic Endo OSCAR purple staple loads were then used for the remainder of the transection until the greater curvature of the stomach was fully transected. This was done staying close to the bougie. Care was taken to stay away from the angle of His cephalad. The staple line was then inspected. Hemostasis was identified. A leak test was then performed. It was clamped distally to the staple line. Irrigation solution was placed in the left upper quadrant and air was insufflated by Anesthesia into the sleeve. No leaks were identified. No obstruction was identified. This was done through the entirety of the staple line. The stomach was suctioned and the bougie removed fully intact under direct visualization. At this point, the irrigation solution was suctioned and again, hemostasis was noted. A wedge liver biopsy was then performed. The left lobe of the liver was identified. A portion of the edge of the left lobe of the liver was grasped. Using electrocautery, a wedge of the left liver was excised. The specimen was removed and sent off the field. Hemostasis of the wedge liver biopsy site was attained and noted using electrocautery. The 15-mm supraumbilical trocar was then removed and the greater curvature specimen removed from the site using a sponge stick brantley. A Zi-Tomas device was then used to close the fascia with a 0 Vicryl suture at the site. Again, hemostasis was noted. The Rob liver retractor was then removed under direct visualization. Pneumoperitoneum was desufflated. Hemostasis was noted at all incision sites and Marcaine was injected at all incision sites. A 3-0 Vicryl suture was used to close the deep subcutaneous tissue at the 15-mm incision site. All incision sites were closed using 4-0 Biosyn. Sterile dressings were applied. The patient tolerated the procedure well and was transferred to the recovery room in stable condition. Alfredo [id number]
[2019-01-13 10:36] LABS: ALBUMIN 3.5 g/dl (3.4-5.0); BILIRUBIN,TOTAL 0.5 mg/dl (0.2-1); CALCIUM 8.7 mg/dl (8.5-10); CREATININE 0.6 mg/dl (0.55-1.3); POTASSIUM 3.5 mmol/L (3.5-5.1); TOT PROT 6.5 g/dl (6.4-8.2)
[2019-01-13] MEDS: ONDANSETRON 4 MG/2 ML VIAL IVPUSH SCH ×2 (17:19→22:02)
[2019-01-13] MEDS: ENOXAPARIN NA (PORCINE) 40 MG/0.4 ML DISP.SYRIN SQ SCH (22:03)
[2019-01-13] MEDS: FAMOTIDINE 20 MG/50 ML IVPB 20 MG/50 ML MG IVPB SCH (22:03)
[2019-01-14] MEDS: ACETAMINOPHEN 1000 MG/100 ML VIAL (NON FORMULARY) IVPB SCH ×3 (00:20→13:00)
[2019-01-14] MEDS: ONDANSETRON 4 MG/2 ML VIAL IVPUSH SCH ×4 (01:38→14:14)
[2019-01-14] MEDS: METOCLOPRAMIDE HCL INJECTION 10 MG/2 ML VIAL IVPUSH SCH ×2 (04:05→10:26)
[2019-01-14 07:26] LABS: HEMATOCRIT 36.9 % (32.4-45.2); HEMOGLOBIN 11.9 GM/dl (10.7-15.3); MCH 29.4 pg (25.7-33.7); MCHC 32.4 g/dl (32.0-36.0); MEAN CELL VOLUME 90.6 fl (80-96); MEAN PLT VOLUME 9.4 fl (7.5-11.1); PLATELET COUNT 275 K/MM3 (134-434); RBC 4.07 M/mm3 (3.60-5.2); RDW 13.8 % (11.6-15.6); WHITE BLOOD COUNT 12.2 K/mm3 (4.0-10.8)
[2019-01-14 07:44] LABS: ALBUMIN 3.4 g/dl (3.4-5.0); BILIRUBIN,TOTAL 0.4 mg/dl (0.2-1); CALCIUM 8.5 mg/dl (8.5-10); CREATININE 0.6 mg/dl (0.55-1.3); POTASSIUM 3.8 mmol/L (3.5-5.1); TOT PROT 6.3 g/dl (6.4-8.2)
--- NOTE | 2019-01-14 08:22 | DS ---
Physical Exam: SUBJECTIVE: Patient seen and examined OBJECTIVE: Vital Signs Temperature 98.9 F 01/14/19 06:00 Pulse Rate 63 01/14/19 06:00 Respiratory Rate 16 01/14/19 08:30 Blood Pressure 135/76 01/14/19 06:00 O2 Sat by Pulse Oximetry (%) 96 01/14/19 08:30 PHYSICAL EXAM GENERAL: The patient is awake, alert, and fully oriented, in no acute distress. HEAD: Normal with no signs of trauma. EYES: PERRL, extraocular movements intact, sclera anicteric, conjunctiva clear. ENT: Ears normal, nares patent, oropharynx clear without exudates, moist mucous membranes. NECK: Trachea midline, full range of motion, supple. LUNGS: Breath sounds equal, clear to auscultation bilaterally, no wheezes, no crackles, no accessory muscle use. HEART: Regular rate and rhythm, S1, S2 without murmur, rub or gallop. ABDOMEN: Soft, nontender, nondistended, normoactive bowel sounds, no guarding, no rebound, no hepatosplenomegaly, no masses. EXTREMITIES: 2+ pulses, warm, well-perfused, no edema. NEUROLOGICAL: Cranial nerves II through XII grossly intact. Normal speech, gait not observed. PSYCH: Normal mood, normal affect. SKIN: Warm, dry, normal turgor, no rashes or lesions noted. LABS CBC,CMP WBC 12.2 K/mm3 (4.0-10.8) H 01/14/19 07:10 RBC 4.07 M/mm3 (3.60-5.2) 01/14/19 07:10 Hgb 11.9 GM/dl (10.7-15.3) 01/14/19 07:10 Hct 36.9 % (32.4-45.2) 01/14/19 07:10 MCV 90.6 fl (80-96) 01/14/19 07:10 MCH 29.4 pg (25.7-33.7) 01/14/19 07:10 MCHC 32.4 g/dl (32.0-36.0) 01/14/19 07:10 RDW 13.8 % (11.6-15.6) 01/14/19 07:10 Plt Count 275 K/MM3 (134-434) 01/14/19 07:10 MPV 9.4 fl (7.5-11.1) 01/14/19 07:10 Sodium 138 mmol/L (136-145) 01/14/19 07:10 Potassium 3.8 mmol/L (3.5-5.1) 01/14/19 07:10 Chloride 105 mmol/L (98-107) 01/14/19 07:10 Carbon Dioxide 24 mmol/L (21-32) 01/14/19 07:10 Anion Gap 9 MMOL/L (8-16) 01/14/19 07:10 BUN 8.0 mg/dl (7-18) 01/14/19 07:10 Creatinine 0.6 mg/dl (0.55-1.3) 01/14/19 07:10 Est GFR (CKD-EPI)AfAm 134.96 01/14/19 07:10 Est GFR (CKD-EPI)NonAf 116.44 01/14/19 07:10 Random Glucose 89 mg/dl (74-106) 01/14/19 07:10 Calcium 8.5 mg/dl (8.5-10) 01/14/19 07:10 Total Bilirubin 0.4 mg/dl (0.2-1) 01/14/19 07:10 AST 31 U/L (15-37) 01/14/19 07:10 ALT 31 U/L (13-61) 01/14/19 07:10 Alkaline Phosphatase 58 U/L (45-117) 01/14/19 07:10 Total Protein 6.3 g/dl (6.4-8.2) L 01/14/19 07:10 Albumin 3.4 g/dl (3.4-5.0) 01/14/19 07:10 HOSPITAL COURSE: Date of Admission:01/13/19 Date of Discharge: 01/14/19 POD 1 Nausea/pain controlled AVSS Labs WNL UGI: no leak/obstruction Clears Discharge home <Abiodun Peguero - Last Filed: 01/14/19 13:38> Physical Exam: SUBJECTIVE: Patient seen and examined this am. 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 No nausea or emesis. Voiding on her own. OBJECTIVE: Vital Signs Temperature 98.9 F 01/14/19 06:00 Pulse Rate 63 01/14/19 06:00 Respiratory Rate 18 01/14/19 06:00 Blood Pressure 135/76 01/14/19 06:00 O2 Sat by Pulse Oximetry (%) 95 01/14/19 06:27 PHYSICAL EXAM GENERAL: The patient is awake, alert, and fully oriented, in no acute distress. LUNGS: Breath sounds equal, clear to auscultation bilaterally, no wheezes, no crackles, no accessory muscle use. HEART: Regular rate and rhythm. ABDOMEN: Soft, inc tenderness, no guarding, no rebound. Inc c/d/i. EXTREMITIES: LE no calf tenderness or swelling noted b/l.. LABS CBC,CMP WBC 12.2 K/mm3 (4.0-10.8) H 01/14/19 07:10 RBC 4.07 M/mm3 (3.60-5.2) 01/14/19 07:10 Hgb 11.9 GM/dl (10.7-15.3) 01/14/19 07:10 Hct 36.9 % (32.4-45.2) 01/14/19 07:10 MCV 90.6 fl (80-96) 01/14/19 07:10 MCH 29.4 pg (25.7-33.7) 01/14/19 07:10 MCHC 32.4 g/dl (32.0-36.0) 01/14/19 07:10 RDW 13.8 % (11.6-15.6) 01/14/19 07:10 Plt Count 275 K/MM3 (134-434) 01/14/19 07:10 MPV 9.4 fl (7.5-11.1) 01/14/19 07:10 Sodium 138 mmol/L (136-145) 01/14/19 07:10 Potassium 3.8 mmol/L (3.5-5.1) 01/14/19 07:10 Chloride 105 mmol/L (98-107) 01/14/19 07:10 Carbon Dioxide 24 mmol/L (21-32) 01/14/19 07:10 Anion Gap 9 MMOL/L (8-16) 01/14/19 07:10 BUN 8.0 mg/dl (7-18) 01/14/19 07:10 Creatinine 0.6 mg/dl (0.55-1.3) 01/14/19 07:10 Est GFR (CKD-EPI)AfAm 134.96 01/14/19 07:10 Est GFR (CKD-EPI)NonAf 116.44 01/14/19 07:10 Random Glucose 89 mg/dl (74-106) 01/14/19 07:10 Calcium 8.5 mg/dl (8.5-10) 01/14/19 07:10 Total Bilirubin 0.4 mg/dl (0.2-1) 01/14/19 07:10 AST 31 U/L (15-37) 01/14/19 07:10 ALT 31 U/L (13-61) 01/14/19 07:10 Alkaline Phosphatase 58 U/L (45-117) 01/14/19 07:10 Total Protein 6.3 g/dl (6.4-8.2) L 01/14/19 07:10 Albumin 3.4 g/dl (3.4-5.0) 01/14/19 07:10 HOSPITAL COURSE: HOSPITAL COURSE: The patient was admitted to the Med-Surg Unit after elective bariatric surgery. Now, s/p laparoscopic vertical sleeve gastrectomy. The day of surgery, the patient ambulated the hallways with assistance. The patient was monitored with remote tele/continuous pulse ox. Narcotic and non-narcotic pain management control was achieved with oral and IV pain control. Upper GI series was obtained the following morning and no leak, extravastion or gastric outlet obstruction. Started on a Bariatric Stage 1 diet and tolerated well. Isa-operative IV ABX were administered in addition to GI prophylaxis. DVT prophylaxis was achieved with SCDs and early ambulation. The discharge instructions and an oral pain management plan were reviewed with the patient. All questions answered. Above plan discussed with Dr. Peguero and agreed. Date of Admission:01/13/19 Date of Discharge: 01/14/19 Minutes to complete discharge: 30 <Ginger Cabello - Last Filed: 01/16/19 13:18> Visit type - Case Type Case Type: Scheduled - Emergency Emergency Visit: No - New patient This patient is new to me today: Yes Date on this admission: 01/16/19 - Critical Care Critical Care patient: No <Ginger Cabello - Last Filed: 01/16/19 13:18>
--- NOTE | 2019-01-14 09:26 | PN ---
Progress Note, Physician Chief Complaint: s/p gastric sleeve under general anesthesia History of Present Illness: post op day one - Current Medication List Current Medications: Active Medications Acetaminophen (Ofirmev Injection -) 1,000 mg IVPB Q6H [facility] Stop: 01/14/19 12:01 Last Admin: 01/14/19 06:07 Dose: 1,000 mg Enoxaparin Sodium (Lovenox -) 40 mg SQ BID [facility] Last Admin: 01/13/19 22:03 Dose: 40 mg Hydromorphone HCl (Dilaudid Injection -) 1 mg IVPB Q3H PRN PRN Reason: PAIN LEVEL 4 - 6 Last Admin: 01/13/19 16:20 Dose: 1 mg Lactated Ringer's (Lactated Ringers Solution) 1,000 mls @ 125 mls/hr IV ASDIR BROOKS Famotidine/Sodium Chloride (Pepcid 20 Mg Premixed Ivpb -) 20 mg in 50 mls @ 100 mls/hr IVPB BID [facility] Last Admin: 01/13/19 22:03 Dose: 100 mls/hr Sodium Chloride (Normal Saline -) 1,000 mls @ 150 mls/hr IV ASDIR BROOKS Metoclopramide HCl (Reglan Injection -) 10 mg IVPUSH Q6H [facility] Last Admin: 01/14/19 04:05 Dose: 10 mg Ondansetron HCl (Zofran Injection) 4 mg IVPUSH Q4H [facility] Last Admin: 01/14/19 06:07 Dose: 4 mg - Objective Vital Signs: Vital Signs Temperature 98.9 F 01/14/19 06:00 Pulse Rate 63 01/14/19 06:00 Respiratory Rate 16 01/14/19 08:30 Blood Pressure 135/76 01/14/19 06:00 O2 Sat by Pulse Oximetry (%) 96 01/14/19 08:30 Constitutional: Yes: Well Nourished Cardiovascular: Yes: WNL Respiratory: Yes: WNL Gastrointestinal: Yes: WNL Labs: CBC, BMP 01/14/19 07:10 01/14/19 07:10 Assessment/Plan No adverse effects of anesthetic, pain controlled, dept of anesthesiology will sign off care at this time
[2019-01-14] MEDS: ENOXAPARIN NA (PORCINE) 40 MG/0.4 ML DISP.SYRIN SQ SCH (10:25)
[2019-01-14] MEDS: FAMOTIDINE 20 MG/50 ML IVPB 20 MG/50 ML MG IVPB SCH (10:26)
[2019-01-14 14:04] VITALS: BP 123/66; PULSE 61; TEMP 98
--- NOTE | 2019-01-15 16:09 | PATH ---
Surgical Pathology Report Patient Name: ROBI SUN Med. Rec. #: [id number] /Age/Gender: 1980 (Age: 38) / F Account: [id number] Location: [facility] MED[facility] Taken: 01/13/2019 Received: 01/13/2019 Reported: 01/15/2019 Physicians: Abiodun Peguero M.D. Specimen(s) Received A: GREATER CURVATURE OF STOMACH B: LIVER BIOPSY Clinical History Morbid obesity Final Diagnosis A. GREATER CURVATURE OF STOMACH, LAPAROSCOPIC GASTRIC SLEEVE EXCISION: PORTION OF STOMACH SHOWING MILD CHRONIC MUCOSAL INFLAMMATION. IMMUNOSTAIN IS NEGATIVE FOR H. PYLORI ORGANISMS. B. LIVER, BIOPSY: PORTION OF LIVER SHOWING MILD STEATOSIS (~5%). TRICHROME STAIN SHOWS NO APPRECIABLE INCREASE IN FIBROSIS. IRON STAIN IS NEGATIVE. Electronically Signed Aditi Goldberg M.D. Gross Description A. Received in formalin, labeled "greater curvature of stomach," is a a 16.5 x 4.5 x 1.5 cm. portion of stomach with a stapled margin of resection. The serosa is poe-boucher with minimal attached fat. The mucosa is poe-pink with normal folds. No mucosal masses are identified. [employer]ing Room Worker sections are submitted in one cassette. B. Received in formalin, labeled "liver biopsy" is a 1.8 x 0.7 x 0.5 cm portion of yellow-brown soft tissue. The specimen is sectioned and entirely submitted in one cassette. AE/01/13/2019 ebram/01/13/2019
== END 2019-01-14 17:14 | disposition home or self-care (01) | DRG 403 ==
LOC: FM/S 05:58
PROVIDERS: ADMIT Surgery; ATTEND Surgery
PROC: 0DB64Z3 Excision of Stomach, Percutaneous Endoscopic Approach, Vertical (ICD-10-PCS; principal; 2019-01-13 08:41)
PROC: 0FB24ZX Excision of Left Lobe Liver, Percutaneous Endoscopic Approach, Diagnostic (ICD-10-PCS; 2019-01-13 08:41)
DX: E66.01 Morbid (severe) obesity due to excess calories (principal); Z68.39 Body mass index [BMI] 39.0-39.9, adult; R16.0 Hepatomegaly, not elsewhere classified
CPT/HCPCS: 36415; 74241-TC-FY; 80053; 85027; 88305-TC; 88313-TC; 88342-TC; 94760; J0131; J7030

== ENCOUNTER 2021-11-12 03:24 | Emergency (ER) | payer OTHER ==
[2021-11-12 03:35] VITALS: BP 150/99; PULSE 84; RESP 20; TEMP 98.2; BMI 27.4
[2021-11-12] MEDS ORDERED: DEXAMETHASONE SOD PHOSPHATE 10 MG/1 ML VIAL IM ONE (03:48)
[2021-11-12] MEDS ORDERED: KETOROLAC TROMETHAMINE 30 MG/1 ML VIAL IM ONE (03:48)
[2021-11-12] MEDS ORDERED: DEXAMETHASONE SOD PHOSPHATE 10 MG/1 ML VIAL ONE (04:09)
[2021-11-12] MEDS ORDERED: KETOROLAC TROMETHAMINE 30 MG/1 ML VIAL ONE (04:09)
[2021-11-12] MEDS ORDERED: AMOX TR/POT CLAV 875MG/125MG TABLETS (FP) PO ONE (04:45)
[2021-11-12] MEDS ORDERED: ACETAMINOPHEN 325 MG TABLET (FP) PO ONE (04:55)
[2021-11-12] MEDS ORDERED: ACETAMINOPHEN 325 MG TABLET (FP) ONE (05:12)
[2021-11-12] MEDS ORDERED: AMOX TR/POT CLAV 875MG/125MG TABLETS (FP) ONE (05:12)
== END 2021-11-12 05:16 | disposition home or self-care (01) ==
LOC: JER 03:24
PROC: 3E0233Z Introduction of Anti-inflammatory into Muscle, Percutaneous Approach (ICD-10-PCS; principal; 2021-11-12)
PROC: 3E023NZ Introduction of Analgesics, Hypnotics, Sedatives into Muscle, Percutaneous Approach (ICD-10-PCS; 2021-11-12)
DX: J03.90 Acute tonsillitis, unspecified (principal); H66.91 Otitis media, unspecified, right ear
CPT/HCPCS: 82962; 87651; 99284-25; J1100

== ENCOUNTER 2022-07-12 23:06 | Emergency (ER) | payer OTHER ==
[2022-07-12 23:15] VITALS: BP 119/69; PULSE 75; RESP 18; TEMP 98.5; BMI 24.3
[2022-07-12 23:42] LABS: EPI CELLS 11 /uL (0-25.1); HCG,QUALITATIVE URINE Negative; HYALINE CASTS 2 /uL (0-3.1); URINE APPEARANCE CLEAR; URINE BACTERIA 131 /uL (0-1359); URINE BILIRUBIN NEGATIVE (NEGATIVE); URINE COLOR YELLOW; URINE GLUCOSE (UA) NEGATIVE (NEGATIVE); URINE KETONE TRACE (NEGATIVE); URINE LEUK ESTERASE 2+ (NEGATIVE); URINE NITRITE NEGATIVE (NEGATIVE); URINE PROTEIN NEGATIVE (NEGATIVE); URINE RBC 8 /uL (0-23.9); URINE WBC 191 /uL (0-25.8)
[2022-07-13] MEDS ORDERED: CEPHALEXIN MONOHYDRATE 500 MG CAPSULE (UD) PO ONE (00:12)
[2022-07-13] MEDS ORDERED: CEPHALEXIN MONOHYDRATE 500 MG CAPSULE (UD) ONE (00:22)
== END 2022-07-13 00:26 | disposition home or self-care (01) ==
LOC: JER 23:06
DX: N39.0 Urinary tract infection, site not specified (principal)
CPT/HCPCS: 36415; 81003; 84703; 87086; 87491; 87591; 99283-25

== ENCOUNTER 2023-02-09 19:31 | Emergency (ER) | payer OTHER ==
[2023-02-09 19:37] VITALS: RESP 18; BMI 27.3
[2023-02-09] MEDS ORDERED: KETOROLAC TROMETHAMINE 15 MG/ML VIAL IVPUSH ONE (20:30)
[2023-02-09] MEDS ORDERED: LIDOCAINE 4% PATCH TP ONE ×2 (20:30→20:59)
[2023-02-09] MEDS ORDERED: KETOROLAC TROMETHAMINE 15 MG/ML VIAL ONE (20:59)
[2023-02-09 21:06] LABS: BASO % 0.6 % (0-2.0); EOS % 12.2 % (0-4.5); HEMATOCRIT 40.1 % (32.4-45.2); HEMOGLOBIN 13.7 GM/dL (10.7-15.3); LYMPH % 42.5 % (8-40); MCH 31.2 pg (25.7-33.7); MCHC 34.3 g/dl (32.0-36.0); MEAN PLT VOLUME 8.2 fl (7.5-11.1); MONO % 6.9 % (3.8-10.2); NEUT % 37.8 % (42.8-82.8); PLATELET COUNT 252 10^3/uL (134-434); RDW 13.9 % (11.6-15.6); WHITE BLOOD COUNT 6.8 K/mm3 (4.0-10.0)
[2023-02-09 21:11] LABS: EPI CELLS >36 /uL (0-25.1); HYALINE CASTS 4 /uL (0-3.1); URINE APPEARANCE CLEAR; URINE BACTERIA 711 /uL (0-1359); URINE BILIRUBIN NEGATIVE (NEGATIVE); URINE COLOR YELLOW; URINE GLUCOSE (UA) NEGATIVE (NEGATIVE); URINE KETONE TRACE (NEGATIVE); URINE LEUK ESTERASE 1+ (NEGATIVE); URINE NITRITE NEGATIVE (NEGATIVE); URINE PROTEIN NEGATIVE (NEGATIVE); URINE RBC 4 /uL (0-23.9); URINE WBC 57 /uL (0-25.8)
[2023-02-09 21:47] LABS: POTASSIUM 4.8 mmol/L (3.5-5.1)
[2023-02-09 21:50] LABS: BLOOD UREA NITROGEN 25.2 mg/dL (7-18); CALCIUM 9.2 mg/dL (8.5-10.1)
[2023-02-09 21:55] LABS: BILIRUBIN,TOTAL 0.4 mg/dL (0.2-1); TOT PROT 7.2 g/dl (6.4-8.2)
[2023-02-09] MEDS ORDERED: LIDOCAINE PATCH REMOVAL MC SCH (22:00)
[2023-02-10 00:32] VITALS: BP 111/70; PULSE 71; TEMP 97.9
== END 2023-02-10 01:03 | disposition home or self-care (01) ==
LOC: JER 19:31
PROC: 3E0333Z Introduction of Anti-inflammatory into Peripheral Vein, Percutaneous Approach (ICD-10-PCS; principal; 2023-02-09)
DX: M54.50 Low back pain, unspecified (principal); S39.012A Strain of muscle, fascia and tendon of lower back, initial encounter; N39.0 Urinary tract infection, site not specified; X58.XXXA Exposure to other specified factors, initial encounter
CPT/HCPCS: 36415; 73502-TC-LT-FY; 74176-TC; 80053; 81003; 84703; 85025; 87086; 99285-25

== ENCOUNTER 2023-04-21 11:31 | Observation (INO) | payer OTHER ==
[2023-04-21] MEDS ORDERED: ACETAMINOPHEN 500 MG TABLET (FP) PO ONE (12:07)
[2023-04-21] MEDS ORDERED: KETOROLAC TROMETHAMINE 30 MG/1 ML VIAL IM ONE (12:07)
[2023-04-21] MEDS ORDERED: DEXAMETHASONE SOD PHOSPHATE 10 MG/1 ML VIAL IM ONE (12:07)
[2023-04-21] MEDS ORDERED: KETOROLAC TROMETHAMINE 30 MG/1 ML VIAL ONE (12:11)
[2023-04-21] MEDS ORDERED: DEXAMETHASONE SOD PHOSPHATE 10 MG/1 ML VIAL ONE (12:12)
[2023-04-21] MEDS ORDERED: ACETAMINOPHEN 500 MG TABLET (FP) ONE (12:12)
[2023-04-21 13:04] LABS: PH,URINE 7.5 (5.0-8.0); URINE APPEARANCE CLEAR; URINE BILIRUBIN NEGATIVE (NEGATIVE); URINE COLOR YELLOW; URINE GLUCOSE (UA) NEGATIVE (NEGATIVE); URINE KETONE NEGATIVE (NEGATIVE); URINE LEUK ESTERASE NEGATIVE (NEGATIVE); URINE NITRITE NEGATIVE (NEGATIVE); URINE PROTEIN NEGATIVE (NEGATIVE)
[2023-04-21] MEDS ORDERED: METHOCARBAMOL 500 MG TABLET PO ONE (13:59)
[2023-04-21] MEDS ORDERED: oxyCODONE HCL 5 MG TABLET PO ONE (14:00)
[2023-04-21] MEDS ORDERED: METHOCARBAMOL 500 MG TABLET ONE (14:02)
[2023-04-21] MEDS ORDERED: oxyCODONE HCL 5 MG TABLET ONE (14:02)
[2023-04-21] MEDS ORDERED: SODIUM CHLORIDE 0.9% 500 ML INFUS.BAG IV ONE (16:16)
[2023-04-21] MEDS ORDERED: morphine CARPU-JECT 2 MG/1 ML DISP.SYRIN IVPUSH ONE (16:19)
[2023-04-21] MEDS ORDERED: LIDOCAINE 4% PATCH TP ONE ×2 (16:20→17:05)
[2023-04-21 17:19] LABS: BASO % 0.8 % (0-2.0); EOS % 0.7 % (0-4.5); HEMATOCRIT 42.3 % (32.4-45.2); HEMOGLOBIN 13.8 GM/dL (10.7-15.3); MCH 31.4 pg (25.7-33.7); MCHC 32.7 g/dl (32.0-36.0); MEAN PLT VOLUME 8.1 fl (7.5-11.1); MONO % 1.2 % (3.8-10.2); NEUT % 86.3 % (42.8-82.8); PLATELET COUNT 304 10^3/uL (134-434); RBC 4.41 M/mm3 (3.60-5.2); RDW 14.8 % (11.6-15.6); WHITE BLOOD COUNT 7.7 K/mm3 (4.0-10.0)
[2023-04-21 17:34] LABS: POTASSIUM 4.9 mmol/L (3.5-5.1)
[2023-04-21 17:37] LABS: BLOOD UREA NITROGEN 21.4 mg/dL (7-18)
[2023-04-21 17:38] LABS: ALBUMIN 4.2 g/dl (3.4-5.0)
[2023-04-21 17:41] LABS: CREATININE 0.9 mg/dL (0.55-1.3)
[2023-04-21 17:42] LABS: BILIRUBIN,TOTAL 0.4 mg/dL (0.2-1); TOT PROT 8.1 g/dl (6.4-8.2)
[2023-04-21] MEDS ORDERED: ACETAMINOPHEN 1000 MG/100 ML BAG IVPB ONE (20:30)
[2023-04-21] MEDS ORDERED: ACETAMINOPHEN 500 MG TABLET (FP) PO PRN (20:32)
[2023-04-21] MEDS ORDERED: ACETAMINOPHEN INJECTION 100 ML IVPB ONE (20:51)
[2023-04-21] MEDS: LIDOCAINE PATCH REMOVAL MC SCH (22:33)
[2023-04-22 06:26] LABS: HEMOGLOBIN 12.7 GM/dL (10.7-15.3); MCH 31.8 pg (25.7-33.7); MCHC 33.3 g/dl (32.0-36.0); MEAN CELL VOLUME 95.4 fl (80-96); MEAN PLT VOLUME 8.5 fl (7.5-11.1); PLATELET COUNT 287 10^3/uL (134-434); RBC 3.99 M/mm3 (3.60-5.2); RDW 14.3 % (11.6-15.6); WHITE BLOOD COUNT 7.1 K/mm3 (4.0-10.0)
[2023-04-22 06:43] LABS: CALCIUM 9.1 mg/dL (8.5-10.1)
[2023-04-22 06:44] LABS: BLOOD UREA NITROGEN 22.6 mg/dL (7-18); MAGNESIUM 2.1 mg/dL (1.8-2.4)
[2023-04-22 06:47] LABS: CREATININE 0.8 mg/dL (0.55-1.3)
[2023-04-22] MEDS ORDERED: ACETAMINOPHEN 325 MG TABLET (FP) ONE ×2 (09:09→22:17)
[2023-04-22] MEDS ORDERED: LIDOCAINE 4% PATCH TP ONE (09:09)
[2023-04-22] MEDS: LIDOCAINE 4% PATCH TP SCH (09:14)
[2023-04-22] MEDS ORDERED: CYCLOBENZAPRINE HCL 5 MG TABLET ONE ×2 (10:19→10:21)
[2023-04-22] MEDS: CYCLOBENZAPRINE HCL 5 MG TABLET PO SCH (10:36)
[2023-04-22] MEDS ORDERED: ACETAMINOPHEN 500 MG TABLET (FP) PO STA (10:42)
[2023-04-22] MEDS ORDERED: GABAPENTIN 100 MG CAPSULE ONE ×2 (13:05→22:17)
[2023-04-22] MEDS: GABAPENTIN 100 MG CAPSULE PO SCH ×2 (13:12→22:23)
[2023-04-22] MEDS ORDERED: GABAPENTIN 100 MG CAPSULE PO SCH (14:00)
[2023-04-22] MEDS ORDERED: ACETAMINOPHEN 500 MG TABLET (FP) ONE (14:56)
[2023-04-22] MEDS: ACETAMINOPHEN 500 MG TABLET (FP) PO SCH ×2 (14:58→22:23)
[2023-04-22] MEDS: LIDOCAINE PATCH REMOVAL MC SCH (22:14)
[2023-04-23 02:34] VITALS: BMI 28.3
[2023-04-23] MEDS: ACETAMINOPHEN 500 MG TABLET (FP) PO SCH ×3 (05:28→22:58)
[2023-04-23] MEDS: GABAPENTIN 100 MG CAPSULE PO SCH ×3 (05:29→22:57)
[2023-04-23] MEDS: CYCLOBENZAPRINE HCL 5 MG TABLET PO SCH (09:53)
[2023-04-23] MEDS: LIDOCAINE 4% PATCH TP SCH (09:54)
[2023-04-23] MEDS ORDERED: ENOXAPARIN NA (PORCINE) 40 MG/0.4 ML DISP.SYRIN SQ SCH (10:00)
[2023-04-23] MEDS ORDERED: oxyCODONE HCL 5 MG TABLET PO PRN (13:59)
[2023-04-23] MEDS ORDERED: LIDOCAINE PATCH REMOVAL MC SCH (22:00)
[2023-04-23] MEDS ORDERED: LIDOCAINE 4% PATCH TP ONE (22:00)
[2023-04-23] MEDS: LIDOCAINE PATCH REMOVAL MC SCH (23:04)
[2023-04-24 01:57] VITALS: RESP 18
[2023-04-24] MEDS: ACETAMINOPHEN 500 MG TABLET (FP) PO SCH (07:04)
[2023-04-24] MEDS: GABAPENTIN 100 MG CAPSULE PO SCH (07:11)
[2023-04-24 09:25] VITALS: BP 98/63; PULSE 78; TEMP 98.3
== END 2023-04-24 10:15 | disposition home or self-care (01) ==
LOC: JER 11:31 → JERFT 11:31 → JERBED 19:49 → J8W 04-23 01:51
PROVIDERS: ADMIT Internal Medicine; ATTEND Nurse Practitioner Acute Care
PROC: 3E033NZ Introduction of Analgesics, Hypnotics, Sedatives into Peripheral Vein, Percutaneous Approach (ICD-10-PCS; principal; 2023-04-21)
PROC: 3E023GC Introduction of Other Therapeutic Substance into Muscle, Percutaneous Approach (ICD-10-PCS; 2023-04-21)
PROC: 3E0333Z Introduction of Anti-inflammatory into Peripheral Vein, Percutaneous Approach (ICD-10-PCS; 2023-04-21)
PROC: 3E033NZ Introduction of Analgesics, Hypnotics, Sedatives into Peripheral Vein, Percutaneous Approach (ICD-10-PCS; 2023-04-21)
PROC: 3E0337Z Introduction of Electrolytic and Water Balance Substance into Peripheral Vein, Percutaneous Approach (ICD-10-PCS; 2023-04-21)
DX: M54.32 Sciatica, left side (principal); N39.0 Urinary tract infection, site not specified; M54.50 Low back pain, unspecified; G89.29 Other chronic pain; M79.18 Myalgia, other site; Z88.8 Allergy status to other drugs, medicaments and biological substances; Z90.49 Acquired absence of other specified parts of digestive tract
CPT/HCPCS: 36415; 72100-TC-FY; 72148-TC; 80048; 80053; 81003; 83735; 85025; 85027; 87086; 87186; 93005; 93010; 96372; 96374; 96375; 96376; 97116-GP; 97161-GP; 99285-25; G0378; J1100

== ENCOUNTER 2023-05-11 04:02 | Day surgery (SDC) | payer OTHER ==
[2023-05-09 14:22] VITALS: BMI 29.2
[2023-05-11] MEDS ORDERED: LIDOCAINE HCL/PF 1% SDV 5ML VIAL ONE (07:38)
[2023-05-11] MEDS ORDERED: BUPIVACAINE HCL/PF 0.75% 10 ML VIAL ONE (07:38)
[2023-05-11] MEDS: LIDOCAINE 1% P/F 10 MG/ML VIAL INF ONE ×2 (12:25)
[2023-05-11] MEDS: BUPIVACAINE HCL/PF 0.75% 10 ML VIAL NR ONE ×2 (12:28)
[2023-05-11 13:18] VITALS: BP 112/72; PULSE 80; RESP 20; TEMP 97.2
[2023-05-11] MEDS ORDERED: ACETAMINOPHEN 500 MG TABLET (FP) PO PRN (15:23)
== END 2023-05-11 13:00 | disposition home or self-care (01) ==
LOC: JASU-SURG 04:02
PROVIDERS: ATTEND Pain Medicine Pain Medicine
PROC: 3E0T33Z Introduction of Anti-inflammatory into Peripheral Nerves and Plexi, Percutaneous Approach (ICD-10-PCS; 2023-05-11)
PROC: 3E0T3BZ Introduction of Anesthetic Agent into Peripheral Nerves and Plexi, Percutaneous Approach (ICD-10-PCS; principal; 2023-05-11 13:15)
DX: M47.816 Spondylosis without myelopathy or radiculopathy, lumbar region (principal)
CPT/HCPCS: 76000-TC-FY; 81025

== ENCOUNTER 2023-06-01 04:13 | Day surgery (SDC) | payer OTHER ==
[2023-05-25 16:59] VITALS: BMI 29.6
[2023-06-01] MEDS ORDERED: BUPIVACAINE HCL/PF 0.75% 10 ML VIAL ONE ×2 (07:32→10:59)
[2023-06-01] MEDS ORDERED: LIDOCAINE HCL/PF 1% SDV 5ML VIAL ONE (07:33)
[2023-06-01] MEDS: BUPIVACAINE HCL/PF 0.75% 10 ML VIAL NR ONE ×2 (11:12)
[2023-06-01] MEDS: LIDOCAINE 1% P/F 10 MG/ML VIAL INF ONE ×2 (11:12)
[2023-06-01 11:37] VITALS: BP 108/74; PULSE 68; TEMP 97.5
[2023-06-01 11:56] VITALS: RESP 18
[2023-06-01] MEDS ORDERED: ACETAMINOPHEN 500 MG TABLET (FP) PO PRN (12:20)
== END 2023-06-01 12:02 | disposition home or self-care (01) ==
LOC: JASU-SURG 04:13
PROVIDERS: ATTEND Pain Medicine Pain Medicine
PROC: 3E0T33Z Introduction of Anti-inflammatory into Peripheral Nerves and Plexi, Percutaneous Approach (ICD-10-PCS; 2023-06-01)
PROC: 3E0T3BZ Introduction of Anesthetic Agent into Peripheral Nerves and Plexi, Percutaneous Approach (ICD-10-PCS; principal; 2023-06-01 11:30)
DX: M54.16 Radiculopathy, lumbar region (principal)
CPT/HCPCS: 76000-TC-FY; 81025

== ENCOUNTER 2023-06-22 05:08 | Day surgery (SDC) | payer OTHER ==
[2023-06-19 13:34] VITALS: BMI 29.6
[2023-06-22] MEDS ORDERED: LIDOCAINE HCL/PF 2% SDV 5ML VIAL ONE (07:21)
[2023-06-22] MEDS ORDERED: DEXAMETHASONE SOD PHOSPHATE 10 MG/1 ML VIAL ONE ×2 (07:21→07:25)
[2023-06-22] MEDS ORDERED: BUPIVACAINE HCL/PF 0.75% 10 ML VIAL ONE (07:21)
[2023-06-22] MEDS: LIDOCAINE HCL/PF 2% SDV 5ML VIAL INF ONE (11:14)
[2023-06-22] MEDS: LIDOCAINE HCL 1% PRESERVATIVE FREE - 30ML VIAL IJ ONE (11:14)
[2023-06-22] MEDS: DEXAMETHASONE SOD PHOSPHATE 10 MG/1 ML VIAL IVPUSH ONE (11:14)
[2023-06-22] MEDS: BUPIVACAINE HCL/PF 0.75% 10 ML VIAL NR ONE (11:14)
[2023-06-22] MEDS ORDERED: ACETAMINOPHEN 500 MG TABLET (FP) PO PRN (11:43)
[2023-06-22 12:47] VITALS: RESP 18; TEMP 97.8
[2023-06-22 12:48] VITALS: BP 120/78; PULSE 70
== END 2023-06-22 12:10 | disposition home or self-care (01) ==
LOC: JASU-SURG 05:08
PROVIDERS: ATTEND Pain Medicine Pain Medicine
PROC: 015B3ZZ Destruction of Lumbar Nerve, Percutaneous Approach (ICD-10-PCS; principal; 2023-06-22 11:45)
DX: M47.816 Spondylosis without myelopathy or radiculopathy, lumbar region (principal)
CPT/HCPCS: 76000-TC-FY; J1100

== ENCOUNTER 2023-07-13 04:03 | Day surgery (SDC) | payer OTHER ==
[2023-07-10 16:17] VITALS: BMI 29.6
[2023-07-13] MEDS ORDERED: DEXAMETHASONE SOD PHOSPHATE 10 MG/1 ML VIAL ONE (07:22)
[2023-07-13] MEDS ORDERED: LIDOCAINE HCL/PF 2% SDV 5ML VIAL ONE (07:22)
[2023-07-13] MEDS ORDERED: LIDOCAINE HCL/PF 1% SDV 5ML VIAL ONE (07:22)
[2023-07-13] MEDS ORDERED: BUPIVACAINE HCL/PF 0.75% 10 ML VIAL ONE (07:22)
[2023-07-13] MEDS: LIDOCAINE 1% P/F 10 MG/ML VIAL INF ONE (13:49)
[2023-07-13] MEDS: BUPIVACAINE HCL/PF 0.75% 10 ML VIAL NR ONE (13:49)
[2023-07-13] MEDS: LIDOCAINE HCL/PF 2% SDV 5ML VIAL INF ONE (13:49)
[2023-07-13] MEDS: DEXAMETHASONE SOD PHOSPHATE 4 MG/1 ML VIAL IVPUSH ONE ×2 (13:50)
[2023-07-13] MEDS: ACETAMINOPHEN 500 MG TABLET (FP) PO PRN (14:10)
[2023-07-13] MEDS ORDERED: ACETAMINOPHEN 500 MG TABLET (FP) ONE (14:19)
[2023-07-13 15:08] VITALS: BP 106/74; PULSE 70; RESP 20; TEMP 97.3
== END 2023-07-13 14:53 | disposition home or self-care (01) ==
LOC: JASU-SURG 04:03
PROVIDERS: ATTEND Pain Medicine Pain Medicine
PROC: 015B3ZZ Destruction of Lumbar Nerve, Percutaneous Approach (ICD-10-PCS; principal; 2023-07-13 13:30)
DX: M47.816 Spondylosis without myelopathy or radiculopathy, lumbar region (principal)
CPT/HCPCS: 76000-TC-FY; J1100

== ENCOUNTER 2024-02-01 04:22 | Day surgery (SDC) | payer OTHER ==
[2024-01-30 11:56] VITALS: BMI 24.1
[2024-02-01 09:42] VITALS: RESP 18
[2024-02-01] MEDS ORDERED: PROPOFOL 20 ML ONE ×2 (11:20→12:20)
[2024-02-01] MEDS ORDERED: MIDAZOLAM HCL 2 MG/2 ML SINGLE DOSE VIAL ONE ×2 (11:20→12:17)
[2024-02-01] MEDS ORDERED: ONDANSETRON 4 MG/2 ML VIAL ONE (11:34)
[2024-02-01] MEDS ORDERED: ceFAZolin SODIUM 1 GM VIAL ONE (11:38)
[2024-02-01] MEDS: ceFAZolin SODIUM 1 GM VIAL IVPB ONE (11:40)
[2024-02-01] MEDS: LIDOCAINE HCL/PF 2% SDV 5ML VIAL INF ONE ×3 (11:46)
[2024-02-01] MEDS: LIDOCAINE HCL 1% PRESERVATIVE FREE - 30ML VIAL IJ ONE ×2 (11:46)
[2024-02-01] MEDS ORDERED: ERTAPENEM SODIUM 1 GM VIAL ONE (12:17)
[2024-02-01] MEDS: oxyCODONE HCL 5 MG TABLET PO PRN (13:50)
[2024-02-01 14:10] VITALS: BP 124/86; PULSE 64; TEMP 97.1
[2024-02-01] MEDS ORDERED: ACETAMINOPHEN 500 MG TABLET (FP) ONE (14:27)
[2024-02-01] MEDS: ACETAMINOPHEN 500 MG TABLET (FP) PO PRN (14:38)
== END 2024-02-01 15:30 | disposition home or self-care (01) ==
LOC: JASU-SURG 04:22
PROVIDERS: ATTEND Pain Medicine Pain Medicine
PROC: 015B0ZZ Destruction of Lumbar Nerve, Open Approach (ICD-10-PCS; principal; 2024-02-01 11:15)
DX: M54.51 Vertebrogenic low back pain (principal)
CPT/HCPCS: 76000-TC-FY

== ENCOUNTER 2024-02-26 10:03 | Inpatient (IN) | payer OTHER ==
[2024-02-26] MEDS ORDERED: MORPHINE SULFATE 2 MG/ML SYRINGE ONE (11:03)
[2024-02-26] MEDS ORDERED: MAG HYDROX/AL HYDROX/SIMETH 30 ML UNIT-DOSE CUP ONE (11:04)
[2024-02-26] MEDS ORDERED: ACETAMINOPHEN INJECTION 100 ML ONE (11:04)
[2024-02-26] MEDS ORDERED: FAMOTIDINE 20 MG/50 ML IVPB 20 MG/50 ML MG IVPB ONE (11:04)
[2024-02-26 11:09] LABS: BASO % 0.7 % (0-2.0); EOS % 11.4 % (0-4.5); HEMOGLOBIN 13.1 GM/dL (10.7-15.3); LYMPH % 37.4 % (8-40); MCHC 31.8 g/dl (32.0-36.0); MEAN CELL VOLUME 94.3 fl (80-96); MEAN PLT VOLUME 8.5 fl (7.5-11.1); MONO % 7.1 % (3.8-10.2); NEUT % 43.4 % (42.8-82.8); PLATELET COUNT 264 10^3/uL (134-434); RBC 4.35 M/mm3 (3.60-5.2); RDW 14.4 % (11.6-15.6); WHITE BLOOD COUNT 5.5 K/mm3 (4.0-10.0)
[2024-02-26 11:18] LABS: INR 0.89 (0.83-1.09); PROTHROMBIN TIME (PATIENT) 10.3 SEC (9.7-13.0)
[2024-02-26 11:20] LABS: ACTIVATED PTT 36.9 SECONDS (25.2-36.5)
[2024-02-26 11:40] LABS: CALCIUM 9.7 mg/dL (8.5-10.1)
[2024-02-26 11:41] LABS: MAGNESIUM 2.2 mg/dL (1.8-2.4)
[2024-02-26 11:43] LABS: CREATININE 0.7 mg/dL (0.55-1.3)
[2024-02-26 11:45] LABS: BILIRUBIN,TOTAL 0.6 mg/dL (0.2-1); TOT PROT 7.3 g/dl (6.4-8.2)
[2024-02-26] MEDS: FAMOTIDINE 20 MG/50 ML IVPB 20 MG/50 ML MG IVPB ONE (11:50)
[2024-02-26] MEDS: MAG HYDROX/AL HYDROX/SIMETH 30 ML UNIT-DOSE CUP PO ONE (11:50)
[2024-02-26] MEDS: ACETAMINOPHEN 1000 MG/100 ML BAG IVPB ONE (11:50)
[2024-02-26] MEDS: morphine CARPU-JECT 2 MG/1 ML DISP.SYRIN IVPUSH ONE (11:50)
[2024-02-26 14:42] LABS: HIV INTERPRETATION NEGATIVE (NEGATIVE)
[2024-02-26] MEDS ORDERED: MORPHINE SULFATE 2 MG/ML SYRINGE IVPUSH PRN (16:11)
[2024-02-26 18:35] VITALS: BMI 24.0
[2024-02-27 09:26] LABS: HEMATOCRIT 35.3 % (32.4-45.2); HEMOGLOBIN 11.7 GM/dL (10.7-15.3); MCH 30.9 pg (25.7-33.7); MCHC 33.3 g/dl (32.0-36.0); MEAN CELL VOLUME 92.9 fl (80-96); MEAN PLT VOLUME 8.7 fl (7.5-11.1); PLATELET COUNT 221 10^3/uL (134-434); RDW 13.8 % (11.6-15.6); WHITE BLOOD COUNT 5.8 K/mm3 (4.0-10.0)
[2024-02-27 09:37] LABS: POTASSIUM 4.1 mmol/L (3.5-5.1)
[2024-02-27 09:44] LABS: CALCIUM 9.3 mg/dL (8.5-10.1)
[2024-02-27 09:45] LABS: BLOOD UREA NITROGEN 10.2 mg/dL (7-18); MAGNESIUM 2.2 mg/dL (1.8-2.4)
[2024-02-27 09:48] LABS: CREATININE 0.6 mg/dL (0.55-1.3)
[2024-02-27 09:49] LABS: ALBUMIN 3.1 g/dl (3.4-5.0); BILIRUBIN,TOTAL 0.7 mg/dL (0.2-1); TOT PROT 5.7 g/dl (6.4-8.2)
[2024-02-27] MEDS: ENOXAPARIN NA (PORCINE) 40 MG/0.4 ML DISP.SYRIN SQ SCH (10:26)
[2024-02-27] MEDS: LACTATED RINGERS SOLUTION 1,000 ML IV SCH (10:28)
[2024-02-27] MEDS: IOHEXOL (OMNIPAQUE IV) 350 MG/ML - 100 ML BOTTLE PO ONE ×2 (13:09→13:11)
[2024-02-27 15:13] VITALS: RESP 18
[2024-02-28 09:02] LABS: BASO % 0.5 % (0-2.0); EOS % 10.3 % (0-4.5); HEMATOCRIT 34.7 % (32.4-45.2); HEMOGLOBIN 11.5 GM/dL (10.7-15.3); LYMPH % 37.9 % (8-40); MCH 30.4 pg (25.7-33.7); MCHC 33.2 g/dl (32.0-36.0); MEAN CELL VOLUME 91.5 fl (80-96); MEAN PLT VOLUME 8.7 fl (7.5-11.1); MONO % 7.9 % (3.8-10.2); NEUT % 43.4 % (42.8-82.8); PLATELET COUNT 238 10^3/uL (134-434); RBC 3.79 M/mm3 (3.60-5.2); RDW 14.1 % (11.6-15.6); WHITE BLOOD COUNT 6.2 K/mm3 (4.0-10.0)
[2024-02-28 09:28] LABS: POTASSIUM 4.4 mmol/L (3.5-5.1)
[2024-02-28 09:59] LABS: BILIRUBIN,TOTAL 0.4 mg/dL (0.2-1)
[2024-02-28 10:01] LABS: CALCIUM 8.9 mg/dL (8.5-10.1)
[2024-02-28 10:02] LABS: BLOOD UREA NITROGEN 11.4 mg/dL (7-18); MAGNESIUM 2.2 mg/dL (1.8-2.4)
[2024-02-28 10:05] LABS: CREATININE 0.6 mg/dL (0.55-1.3)
[2024-02-28 10:06] LABS: TOT PROT 5.5 g/dl (6.4-8.2)
[2024-02-29 09:00] LABS: BASO % 1.3 % (0-2.0); EOS % 12.5 % (0-4.5); HEMATOCRIT 38.3 % (32.4-45.2); HEMOGLOBIN 12.5 GM/dL (10.7-15.3); LYMPH % 46.3 % (8-40); MCH 30.6 pg (25.7-33.7); MCHC 32.6 g/dl (32.0-36.0); MEAN CELL VOLUME 93.7 fl (80-96); MEAN PLT VOLUME 8.8 fl (7.5-11.1); NEUT % 31.9 % (42.8-82.8); PLATELET COUNT 218 10^3/uL (134-434); RBC 4.09 M/mm3 (3.60-5.2); RDW 13.8 % (11.6-15.6); WHITE BLOOD COUNT 4.9 K/mm3 (4.0-10.0)
[2024-02-29 09:29] LABS: POTASSIUM 4.1 mmol/L (3.5-5.1)
[2024-02-29 09:32] LABS: ALBUMIN 3.3 g/dl (3.4-5.0); BLOOD UREA NITROGEN 10.5 mg/dL (7-18); CALCIUM 8.9 mg/dL (8.5-10.1); MAGNESIUM 2.2 mg/dL (1.8-2.4)
[2024-02-29 09:36] LABS: CREATININE 0.5 mg/dL (0.55-1.3)
[2024-02-29 09:37] LABS: BILIRUBIN,TOTAL 0.4 mg/dL (0.2-1); TOT PROT 6.1 g/dl (6.4-8.2)
[2024-02-29 11:26] VITALS: BP 107/78; PULSE 76; TEMP 97.9
== END 2024-02-29 11:38 | disposition home or self-care (01) | DRG 247 ==
LOC: JER 10:03 → JERBED 14:59 → J8W 17:23
PROVIDERS: ADMIT Internal Medicine; ATTEND Nurse Practitioner Acute Care
DX: K56.609 Unspecified intestinal obstruction, unspecified as to partial versus complete obstruction (principal); D25.9 Leiomyoma of uterus, unspecified; Z98.84 Bariatric surgery status
CPT/HCPCS: 36415; 74019-TC-FY; 74177-TC; 76705-TC; 80053; 83690; 83735; 84484; 84703; 85025; 85027; 85610; 85730; 86803; 86850; 86900; 86901; 87389; 93005; 93010; 99285-25; J0131; Q9967

== ENCOUNTER 2024-10-10 07:30 | Day surgery (SDC) | payer OTHER ==
[2024-10-07 13:09] VITALS: BMI 23.6
[2024-10-10] MEDS ORDERED: ACETAMINOPHEN 500 MG TABLET (FP) PO PRN (09:40)
[2024-10-10] MEDS ORDERED: LIDOCAINE HCL/PF 1% SDV 5ML VIAL ONE ×2 (13:49→17:38)
[2024-10-10] MEDS ORDERED: BUPIVACAINE HCL/PF 0.75% 10 ML VIAL ONE (13:49)
[2024-10-10] MEDS ORDERED: DEXAMETHASONE SOD PHOSPHATE 10 MG/1 ML VIAL ONE (13:50)
[2024-10-10] MEDS: LIDOCAINE 1% P/F 10 MG/ML VIAL INF ONE (17:58)
[2024-10-10] MEDS: BUPIVACAINE 0.75% IN DEXTROSE/PF 2ML AMPULE NR ONE (18:02)
[2024-10-10] MEDS: DEXAMETHASONE SOD PHOSPHATE 10 MG/1 ML VIAL IVPUSH ONE (18:08)
[2024-10-10 18:56] VITALS: BP 114/78; PULSE 18; RESP 72; TEMP 98
== END 2024-10-10 19:00 | disposition home or self-care (01) ==
LOC: JASU-SURG 07:30
PROVIDERS: ATTEND Pain Medicine Pain Medicine
PROC: 015B3ZZ Destruction of Lumbar Nerve, Percutaneous Approach (ICD-10-PCS; principal; 2024-10-10 15:15)
DX: M47.816 Spondylosis without myelopathy or radiculopathy, lumbar region (principal)
CPT/HCPCS: 76000-TC-FY; J1100

== ENCOUNTER 2024-11-28 06:12 | Day surgery (SDC) | payer OTHER ==
[2024-11-25 16:43] VITALS: BMI 25.4
[2024-11-28] MEDS ORDERED: LIDOCAINE HCL/PF 1% SDV 5ML VIAL ONE (07:30)
[2024-11-28] MEDS ORDERED: DEXAMETHASONE SOD PHOSPHATE 10 MG/1 ML VIAL ONE (07:30)
[2024-11-28] MEDS ORDERED: SODIUM CHLORIDE 0.9% P/F 10 ML VIAL IJ ONE (07:34)
[2024-11-28] MEDS ORDERED: ACETAMINOPHEN 500 MG TABLET (FP) ONE (14:01)
[2024-11-28] MEDS: ACETAMINOPHEN 500 MG TABLET (FP) PO ONE (14:12)
[2024-11-28 15:53] VITALS: BP 118/78; PULSE 78; RESP 20; TEMP 97.2
== END 2024-11-28 14:27 | disposition home or self-care (01) ==
LOC: JASU-SURG 06:12
PROVIDERS: ATTEND Pain Medicine Pain Medicine
PROC: 3E0U3BZ Introduction of Anesthetic Agent into Joints, Percutaneous Approach (ICD-10-PCS; 2024-11-28)
PROC: 3E0U33Z Introduction of Anti-inflammatory into Joints, Percutaneous Approach (ICD-10-PCS; principal; 2024-11-28 13:44)
DX: M53.3 Sacrococcygeal disorders, not elsewhere classified (principal)
CPT/HCPCS: 76000-TC-FY; J1100